=== PATIENT | female | born 1955 | race Two or more races ===

== ENCOUNTER → 2023-10-09 | Outpatient (CLI) | payer OTHER ==
[2023-10-09 11:48] LABS: Basophils # (auto) 0.1 10 ^3/uL (0-0.2); Basophils % (auto) 1.1 % (0.0-2.0); Eosinophils # (auto) 0.1 10 ^3/uL (0-0.8); Eosinophils % (auto) 1.2 % (0.0-7.0); Hematocrit 42.6 % (36.0-46.0); Hemoglobin 14.2 g/dL (12.2-16.2); Lymphocytes # (auto) 2.1 10 ^3/uL (0.4-5.4); Lymphocytes % (auto) 35.5 % (10.0-50.0); Mean Corpuscular Hemoglobin 29.7 pg (28.0-32.0); Mean Corpuscular Hgb Conc. 33.2 g/dL (32.0-36.0); Mean Corpuscular Volume 89.3 fL (80.0-100.0); Monocytes # (auto) 0.3 10 ^3/uL (0-1.3); Monocytes % (auto) 4.4 % (0.0-12.0); Neutrophils # (auto) 3.5 10 ^3/uL (1.6-8.6); Neutrophils % (auto) 57.8 % (37.0-80.0); Red Blood Cells 4.77 10^6/uL (4.0-5.20); Red Cell Distribution Width 12.9 % (11.8-14.3)
[2023-10-09 12:07] LABS: Creatinine, Urine 103.87 mg/dL (30.0-125.0)
[2023-10-09 12:14] LABS: Alanine Aminotransferase 21 U/L (7-40); Albumin 4.3 g/dL (3.2-4.8); Alkaline Phosphatase 93 U/L (46-116); Anion Gap 7 (5-15); Aspartate Aminotransferase 16 U/L (13-40); BUN/Creatinine Ratio 16.1 (10.0-20.0); Blood Urea Nitrogen 10 mg/dL (9-23); Calcium 9.2 mg/dL (8.5-10.1); Carbon Dioxide 27 mmol/L (20-30); Chloride 106 mmol/L (98-107); Cholesterol 213 mg/dL (< 200); Glucose 215 mg/dL (74-106); HDL Cholesterol 53 mg/dL (40-59); LDL Cholesterol 157 mg/dL (< 100); Potassium 4.2 mmol/L (3.5-5.1); Sodium 140 mmol/L (136-145); Triglycerides 104 mg/dL (< 150)
[2023-10-09 12:15] LABS: Bilirubin, Total 0.6 mg/dL (0.2-1.0); Total Protein 6.7 g/dL (5.7-8.2); Urine Bacteria FEW /hpf (None Seen); Urine Blood 1+ /uL (Negative); Urine Clarity Clear (Clear); Urine Color Yellow (Yellow); Urine Mucus FEW (None Seen); Urine Protein, UAD Negative (Negative); Urine Urobilinogen Normal (Negative); Urine WBC 2 /hpf (0 - 5)
== END | disposition home or self-care (01) ==
LOC: LAB 11:14
DX: Z12.11 Encounter for screening for malignant neoplasm of colon (principal); I10 Essential (primary) hypertension; E11.9 Type 2 diabetes mellitus without complications
CPT/HCPCS: 36415; 80053; 80061; 81001; 82043; 82570; 83036; 84443; 85025

== ENCOUNTER 2023-12-24 23:47 | Emergency (ER) | payer MEDICAID, OTHER ==
[~2023-12-24] VITALS: Ht 160 cm; Wt 75.0 kg
[2023-12-25 01:02] LABS: Urine Bacteria FEW /hpf (None Seen); Urine Blood 1+ /uL (Negative); Urine Clarity Clear (Clear); Urine Color Colorless (Yellow); Urine Protein, UAD Negative (Negative); Urine Specific Gravity 1.012 (1.001-1.035); Urine Urobilinogen Normal (Negative); Urine WBC <1 /hpf (0 - 5); Urine pH 5.5 (5.0-9.0)
[2023-12-25 03:00] VITALS: PULSE 72; RESP 12; O2SAT 94
[2023-12-25] MEDS: KETOROLAC TROMETH 60MG/2ML VIAL IM ONE (03:29)
[2023-12-25 03:30] VITALS: BP 164/69; PULSE 68; RESP 13; TEMP 98.4; O2SAT 92
[2023-12-25] MEDS: HYDROcodone-ACET 5/325MG TAB PO ONE (03:30)
== END 2023-12-25 03:55 | disposition home or self-care (01) ==
LOC: ER 23:47
DX: N93.8 Other specified abnormal uterine and vaginal bleeding (principal); R10.9 Unspecified abdominal pain
CPT/HCPCS: 81001; 96372; 99283; J1885

== ENCOUNTER → 2024-01-05 | Outpatient (CLI) | payer MEDICAID | END | disposition home or self-care (01) | LOC: LAB 11:00 | PROVIDERS: ATTEND Obstetrics & Gynecology | DX: N93.9 Abnormal uterine and vaginal bleeding, unspecified (principal) ==

== ENCOUNTER → 2024-05-09 | Outpatient (CLI) | payer MEDICAID ==
[2024-05-09 09:54] LABS: Basophils # (auto) 0.1 10 ^3/uL (0-0.2); Basophils % (auto) 0.8 % (0.0-2.0); Eosinophils # (auto) 0.1 10 ^3/uL (0-0.8); Eosinophils % (auto) 1.4 % (0.0-7.0); Hematocrit 38.3 % (36.0-46.0); Hemoglobin 13.1 g/dL (12.2-16.2); Lymphocytes # (auto) 2.3 10 ^3/uL (0.4-5.4); Lymphocytes % (auto) 31.9 % (10.0-50.0); Mean Corpuscular Hemoglobin 30.4 pg (28.0-32.0); Mean Corpuscular Hgb Conc. 34.3 g/dL (32.0-36.0); Mean Corpuscular Volume 88.7 fL (80.0-100.0); Monocytes # (auto) 0.4 10 ^3/uL (0-1.3); Monocytes % (auto) 5.6 % (0.0-12.0); Neutrophils # (auto) 4.3 10 ^3/uL (1.6-8.6); Neutrophils % (auto) 60.3 % (37.0-80.0); Platelet Count (auto) 277 10^3/uL (140-450); Red Blood Cells 4.32 10^6/uL (4.0-5.20); Red Cell Distribution Width 13.3 % (11.8-14.3); White Blood Cell 7.1 10^3/uL (4.4-10.8)
[2024-05-09 10:22] LABS: Alanine Aminotransferase 15 U/L (7-40); Albumin 4.3 g/dL (3.2-4.8); Alkaline Phosphatase 84 U/L (46-116); Anion Gap 7 (5-15); Aspartate Aminotransferase 11 U/L (13-40); BUN/Creatinine Ratio 23.2 (10.0-20.0); Blood Urea Nitrogen 16 mg/dL (9-23); Calcium 9.3 mg/dL (8.7-10.4); Carbon Dioxide 27 mmol/L (20-31); Chloride 108 mmol/L (98-107); Cholesterol 233 mg/dL (< 200); Glucose 142 mg/dL (74-106); HDL Cholesterol 46 mg/dL (40-59); LDL Cholesterol 176 mg/dL (< 100); Potassium 4.3 mmol/L (3.5-5.1); Sodium 142 mmol/L (136-145); Triglycerides 102 mg/dL (< 150)
[2024-05-09 10:23] LABS: Bilirubin, Total 0.5 mg/dL (0.2-1.0); Total Protein 7.1 g/dL (5.7-8.2)
[2024-05-09 10:40] LABS: Urine Bacteria FEW /hpf (None Seen); Urine Blood 1+ /uL (Negative); Urine Clarity Clear (Clear); Urine Color Light-Yellow (Yellow); Urine Protein, UAD Negative (Negative); Urine Specific Gravity 1.018 (1.001-1.035); Urine Urobilinogen Normal (Negative); Urine WBC 1 /hpf (0 - 5); Urine pH 5.5 (5.0-9.0)
== END | disposition home or self-care (01) ==
LOC: LAB 09:31
PROVIDERS: ATTEND Student in an Organized Health Care Education/Training Program
DX: I10 Essential (primary) hypertension (principal); E11.9 Type 2 diabetes mellitus without complications
CPT/HCPCS: 36415; 80053; 80061; 81001; 82306; 83036; 84443; 85025

== ENCOUNTER 2024-10-02 09:28 | Emergency (ER) | payer MEDICAID, MEDICARE ==
[~2024-10-02] VITALS: Ht 160 cm; Wt 70.2 kg
--- NOTE | 2024-10-02 10:24 | ED.PDOC ---
History of Present Illness HPI Comments 69 year old female presents to the ED with chief complaint of wound check. Patient reports that she had a surgery performed on 09/12/24 at [place] to remove an abdominal mass, however, she started to notice redness and discharge to her surgical site at the umbilicus yesterday. Patient relays that she also h as associated abdominal discomfort. Patient denies any N/V/D, fever, chills, or itchiness. Time Seen by MD: 10:20 Reviewed Notes: Nurses Notes, Medications, Allergies Allergies: Coded Allergies: NO KNOWN ALLERGIES (Unverified , 10/02/24) Home Meds Active Scripts Cephalexin (KEFLEX CAPSULE) 250 Mg Cp, 250 MG PO QID for 5 Days, #20 BOTTLE Prov:MAKEDA CHESTER MD 10/02/24 Information Source: Patient Mode of Arrival: Ambulatory Severity: Moderate Timing: Days Duration: Since onset Prehospital treatment: None Past Medical History PAST MEDICAL HISTORY: DM, HTN Surgical History: Hysterectomy, Tubal Ligation Surgical History (Other): Oophorectomy, Abdominal mass surgery 09/12 ENERGY SYSTEMS ENGINEER History: Denies all ENERGY SYSTEMS ENGINEER Hx Family History Family History: Reviewed,noncontributory to illness Social History Smoker: Non-Smoker Alcohol: Denies ETOH Use Drugs: Denies Drug Use Lives In: Home Constitutional: denies: chills, diaphoresis, fatigue, fever, malaise, sweats, weakness, others EENTM: denies: blurred vision, double vision, ear bleeding, ear discharge, ear drainage, ear pain, ear ringing, eye pain, eye redness, hearing loss, mouth pain, mouth swelling, nasal discharge, nose bleeding, nose congestion, nose pain, photophobia, tearing, throat pain, throat swelling, voice changes, others Respiratory: denies: cough, hemoptysis, orthopnea, SOB at rest, shortness of breath, SOB with excertion, stridor, wheezing, others Cardiovascular: denies: chest pain, dizzy spells, diaphoresis, Dyspnea on exertion, edema, irregular heart beat, left arm pain, lightheadedness, palpitations, PND, syncope, others Gastrointestinal: denies: abdomen distended, abdominal pain, blood streaked bowels, constipated, diarrhea, dysphagia, difficulty swallowing, hematemesis, melena, nausea, poor appetite, poor fluid intake, rectal bleeding, rectal pain, vomiting, others Genitourinary: denies: abnormal vagina bleeding, burning, dyspareunia, dysuria, flank pain, frequency, hematuria, incontinence, pain, , vagina discharge, urgency, others Neurological: denies: dizziness, fainting, headache, left sided numbness, left sided weakness, numbness, paresthesia, pre-existing deficit, right sided numbness, right sided weakness, seizure, speech problems, tingling, tremors, weakness, others Musculoskeletal: denies: back pain, gout, joint pain, joint swelling, muscle pain, muscle stiffness, neck pain, others Integumetry: reports: wounds (redness and discharge noted to umbilicus); denies: bruises, change in color, change in hair/nails, dryness, laceration, lesions, lumps, rash, others Allergic/Immunocompromised: denies: Difficulty Healing, Frequent Infections, Hives, Itching, others Hematologic/Lymphatic: denies: anemia, blood clots, easy bleeding, easy bruising, swollen glands, others Endocrine: denies: excessive hunger, excessive sweating, excessive thirst, excessive urination, flushing, intolerance to cold, intolerance to heat, unexplained weight gain, unexplained weight loss, others Psychiatric: denies: anxiety, bipolar disorder, depression, hopeless, panic disorder, schizophrenia, sleepless, suicidal, others All Other Systems: Reviewed and Negative Physical Exam General Appearance: Moderate Distress, Normal HEENT: Normal ENT Inspection, PERRL/EOMI Neck: Full Range of Motion, Non-Tender, Normal, Normal Inspection Respiratory: Chest Non-Tender, Lungs Clear, No Accessory Muscle Use, No Respiratory Distress, Normal Breath Sounds Cardiovascular: No Edema, No JVD, No Murmur, No Gallop, Normal Peripheral Pulses, Regular Rate/Rhythm Breast Exam: Deferred Gastrointestinal: No Organomegaly, Non Tender, No Pulsatile Mass, Normal Bowel Sounds, Soft Genitalia: Deferred Pelvic: Deferred Rectal: Deferred Extremities: No calf tenderness, Normal capillary refill, Normal inspection, Normal range of motion, Non-tender, No pedal edema Musculoskeletal : Apperance: Normal Neurologic: Alert, office sweeper II-XII nml as Tested, No Motor Deficits, Normal Affect, Normal Mood, No Sensory Deficits Cerebellar Function: Normal Reflexes: Normal Skin: Dry, Normal Color, Warm, Wounds (Surgical small area above the surgical line mild redness no sepsis) Peripheral Pulses: 3+ Radial (R), 3+ Radial (L) Lymphatic: No Adenopathy Was a procedure done? Was a procedure done?: No Differential Dx Considerations may include: Cellulitis Electrolyte imbalance X-Ray, Labs, Meds, VS Vital Signs Date Time Temp Pulse Resp B/P (MAP) Pulse Ox O2 Delivery O2 Flow Rate FiO2 10/02/24 09:35 97.9 78 18 129/61 (83) 97 Patient alert. Had a surgery below the umbilicus more than a month ago. Vitals stable. Answering questions. No sign of any sepsis. Heart rate within normal limits. Saturation pristine on room air. Mild redness above the surgical line. Possible early cellulitis. No leg swelling. No shortness a breath. Was given prescription of Keflex antibiotic. Explained to the patient. Was told to follow up with her primary care physician. Was told to come back if there is any problem. Time of 1ST Reevaluation: 11:20 Reevaluation 1ST: Improved Patient Education/Counseling: Diagnosis, Treatment Family Education/Counseling: No Family Present Departure 1 Departure Time of Disposition: 12:20 Impression: Primary Impression: Cellulitis Qualified Codes: L03.90 - Cellulitis, unspecified Disposition: HOME / SELF CARE / HOMELESS Condition: Good e-Prescriptions Cephalexin (KEFLEX CAPSULE) 250 Mg Cp 250 MG PO QID for 5 Days, #20 BOTTLE Prov: MAKEDA CHESTER MD 10/02/24 Discharged With: Self Critical Care Note Critical Care Time?: No Stability Stability form required: No Heart Score Heart Score: Heart Score Response (Comments) Value History N/A 0 EKG N/A 0 Age N/A 0 Risk Factors N/A 0 Troponin N/A 0 Total 0 I personally scribed for MAKEDA CHESTER MD ([email or web address]) on 10/02/24 at 10:24. Electronically submitted by James Thurston ([email or web address]). I personally scribed for MAKEDA CHESTER MD ([email or web address]) on 10/02/24 at 10:24. Electronically submitted by James Thurston ([email or web address]). MAKEDA CHESTER MD Oct 02, 2024 10:24
[2024-10-02] MEDS ORDERED: CEPH250C PO (12:20)
[2024-10-02 13:18] VITALS: BP 129/59; TEMP 98.9
[2024-10-02 13:23] VITALS: PULSE 85; RESP 16; O2SAT 98
== END 2024-10-02 13:26 | disposition home or self-care (01) ==
LOC: ER 09:28
DX: L03.311 Cellulitis of abdominal wall (principal); I10 Essential (primary) hypertension; E11.9 Type 2 diabetes mellitus without complications; Z90.710 Acquired absence of both cervix and uterus; Z90.721 Acquired absence of ovaries, unilateral

== ENCOUNTER 2025-05-01 11:28 | Inpatient (IN) | payer MEDICARE, MEDICAID ==
[~2025-05-01] VITALS: Ht 160 cm; Wt 70.8 kg
[~2025-05-01 11:28] MED LIST: CEPH250C PO
--- NOTE | 2025-05-01 11:47 | ED.PDOC ---
HPI (NEURO) HPI Comments 70-year-old female who presents to the ED for c/c of generalized weakness Beta states she has been having left-sided weakness for the past 3 days getting progressively worse Patient states he has been having associated headache dizziness and states she had a near syncopal episode earlier today and came to the ED today for further evaluation Patient presented to the ED noted able to ambulate on her own without any assistance Patient in the ED is alert and oriented x4 able to answer all questions but has noted lower upper and lower extremity weakness to the left patient had ED has a stable vitals including blood pressure 136/71 heart rate 91 respiratory rate 16 temperature 97.6F and O2 saturation of 96% on room air Past Medical history: diabetes, hypertension Past Surgical history: tubal ligation, hysterectomy Medications: denies ALLERGIES: denies Social history: denies ETOh, denies tobacco use, denies drug use MOYER: HPI: Poor Historian. REVIEW OF SYSTEMS: CONSTITUTIONAL: Denies acute: fever, diaphoresis, chills, generalized weakness. HEAD: Denies acute: headache, photophobia Eyes: Denies acute: Double vision, vision loss, eye pain, eye discharge. EARS: Denies acute: tinnitus, hearing loss, ear discharge, ear pain, THROAT: Denies acute: sore throat, swelling, difficulty swallowing , pain with swallowing, change in voice. NECK: Denies acute: neck pain, neck swelling, stiff neck. HEART: Denies acute : chest pain, palpitations, LUNGS: Denies acute: SOB, wheezing, cough, hemoptysis ABDOMEN: Denies acute: abdominal pain, Nausea, Vomiting, diarrhea, melena , hematemesis, hematochezia SKIN: Denies acute: rash, redness, lesions, itchiness. EXTREMITIES: Denies acute: calf pain, numbness, tingling, weakness, denies pain in extremity. Denies acute: Low back pain. Neuro: Denies acute: seizure like activity, confusion, dizziness, change in mental status, loss of bowel or bladder function, cauda equina like symptoms. : Denies acute: dysuria, hematuria, flank pain, increase in urinary frequency. PSYCH: Denies acute: hallucination, suicidal ideation, homicidal ideation. FEMALE: Denies acute: abnormal vaginal bleeding, foul odor, unusual discharge. PHYSICAL EXAM: General: -----mild---acute distress, awake and alert. Head: normocephalic, atraumatic. Neck: supple, trachea is midline, no swelling. Throat: Normal phonation. Eyes:, no erythema, no purulent discharge, no proptosis, no icterus. Heart: regular rate, regular rhythm, no significant murmur appreciated. Lungs: no apparent respiratory distress, Able to speak in full sentences. No wheezing, no rhonchi, no crackles. No stridors Clear to auscultation bilaterally. Abdomen: non tender to palpation, non distended, soft, no guarding, no rebound, + bowel sounds. Neuro: Awake, Alert, oriented to name, self, situation, follows commands GCS=15. Speech is normal. Skin: no petechia, no purpura, no cyanosis, non-pale, not jaundice. Lower extremities: --no - Pitting edema no deformity, no focal swelling, no calf TTP. Makes eye contact. moves all four extremities. Face: no apparent facial droop. Stroke: finger to nose cerebellar testing is sluggish on left. noted left side pronator drift. 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 No nuchal rigidity, Kernig's sign, Brudzinski's sign, no meningeal signs. ED COURSE: DISCLAIMER: This medical document was created using an electronic medical record system with voice recognition software and computerized dictation system. Although this document has been carefully reviewed, there might still be some phonetic and typographical errors. Occasional wrong-word or "sound-alike" substitutions may have occurred due to the inherent limitations of voice recognition software. These areas are purely typographical due to imperfections of the software prog karla and do not reflect any compromise in the patient's medical care. Please read the chart carefully and recognize, using context, where these substitutions have occurred. Chief Complaint: Left Sided Weakness Time Seen by MD: 11:44 Primary Care Provider: WHITTEN Reviewed Notes: Medications, Allergies Information Source: Patient Mode of Arrival: Ambulatory Past Medical History PAST MEDICAL HISTORY: DM, HTN Surgical History: Hysterectomy, Tubal Ligation COMPO CASTER History: Denies all COMPO CASTER Hx Family History Family History: Reviewed,noncontributory to illness Social History Smoker: Non-Smoker Alcohol: Denies ETOH Use Drugs: Denies Drug Use Lives In: Home Was a procedure done? Was a procedure done?: No Differential Diagnosis (SZ) Seizure: N/A CVA: Zuniga's Palsy, CVA, Delirium Tremens, DKA, Drug Overdose, Electrolyte Imbalance, Encephalopathy, Hypoglycemia, Hypoxemia, Mass Lesion, Respiratory Failure, SAH, TIA X-Ray, Labs, Meds, VS Vital Signs Date Time Temp Pulse Resp B/P (MAP) Pulse Ox O2 Delivery O2 Flow Rate FiO2 05/01/25 19:37 98.5 78 16 181/79 (113) 97 98.5 05/01/25 16:22 98.4 76 23 160/78 (105) 94 98.4 05/01/25 11:31 97.6 91 16 136/71 96 97.6 Lab Test 05/01/25 15:44 05/01/25 13:37 05/01/25 12:21 Range/Units Phosphorus Level 3.9 2.4-5.1 mg/dL Troponin I High Sensitivity 3 L 3 L < 3 L </=34 ng/L Triglycerides Level 181 H < 150 mg/dL Cholesterol Level 257 H < 200 mg/dL LDL Cholesterol 207 H < 100 mg/dL HDL Cholesterol 46 40-59 mg/dL Thyroid Stimulating Hormone (TSH) 1.44 0.55-4.78 uIU/mL White Blood Count 7.3 4.4-10.8 10^3/uL Red Blood Count 4.52 4.0-5.20 10^6/uL Hemoglobin 13.2 12.2-16.2 g/dL Hematocrit 39.1 36.0-46.0 % Mean Corpuscular Volume 86.5 80.0-100.0 fL Mean Corpuscular Hemoglobin 29.2 28.0-32.0 pg Mean Corpuscular Hemoglobin Concent 33.8 32.0-36.0 g/dL Red Cell Distribution Width 12.8 11.8-14.3 % Platelet Count 263 140-450 10^3/uL Mean Platelet Volume 8.8 6.9-10.8 fL Neutrophils (%) (Auto) 69.1 37.0-80.0 % Lymphocytes (%) (Auto) 26.4 10.0-50.0 % Monocytes (%) (Auto) 3.6 0.0-12.0 % Eosinophils (%) (Auto) 0.3 0.0-7.0 % Basophils (%) (Auto) 0.6 0.0-2.0 % Neutrophils # (Auto) 5.0 1.6-8.6 10 ^3/uL Lymphocytes # (Auto) 1.9 0.4-5.4 10 ^3/uL Monocytes # (Auto) 0.3 0-1.3 10 ^3/uL Eosinophils # (Auto) 0 0-0.8 10 ^3/uL Basophils # (Auto) 0 0-0.2 10 ^3/uL Nucleated Red Blood Cells 0.0 % Prothrombin Time 10.5 9.3-11.8 sec Prothrombin Time INR 0.99 0.9-1.15 Activated Partial Thromboplast Time 25.5 24.5-34.5 SEC Sodium Level 134 L 136-145 mmol/L Potassium Level 3.7 3.5-5.1 mmol/L Chloride Level 99 98-107 mmol/L Carbon Dioxide Level 25 20-31 mmol/L Anion Gap 10 5-15 Blood Urea Nitrogen 22 9-23 mg/dL Creatinine 0.94 0.550-1.02 mg/dL Glomerular Filtration Rate Calc 65 >90 mL/min BUN/Creatinine Ratio 23.4 H 10.0-20.0 Serum Glucose 324 H 74-106 mg/dL Hemoglobin A1c > 14.0 H <5.7 % A1C Calcium Level 9.3 8.7-10.4 mg/dL Magnesium Level 1.7 1.6-2.6 mg/dL Total Bilirubin 0.5 0.2-1.0 mg/dL Aspartate Amino Transferase (AST) 14 13-40 U/L Alanine Aminotransferase (ALT) 18 7-40 U/L Alkaline Phosphatase 106 46-116 U/L B-Type Natriuretic Peptide 74.28 0-100 pg/mL Total Protein 7.1 5.7-8.2 g/dL Albumin 4.1 3.2-4.8 g/dL Vitamin B12 Level 770 211-911 pg/mL [facility] [address] [place] [id number] Ph: [phone] DIAGNOSTIC IMAGING Diagnostic Imaging Report : [id number] Signed PATIENT: YUDELKA MOYER ACCT: [id number] UNIT: [id number] : 1955 LOC: ER ROOM / BED: / AGE / SEX: 70 / F ADM STATUS: REG ER SERVICE [facility] ORDERING PHYSICIAN: GARRETT NOE DO PROCEDURE(s): CXR1 - CHEST XRAY 1 VIEW REASON: stroke ORDER NUMBER(s): [id number], ACCESSION NUMBER(s): [id number] XY CHEST XRAY 1 VIEW, HISTORY: stroke COMPARISON: None None TECHNICAL DATA: 1 view of the chest was obtained. FINDINGS: Lines and tubes: None Cardiomediastinal silhouette: normal Pulmonary vasculature: normal Lung expansion: normal Lung airspace: normal Lung interstitium: normal Pleura: normal Pneumothorax: no Bones: Unremarkable Other: no IMPRESSION: No acute intrathoracic abnormality. ATED BY: REJI BOSS MD DICTATED DATE/TIME: 05/01/251218 SIGNED BY: REJI BOSS MD SIGNED DATE/TIME: 05/01/251218 CC: [place] [id number] Ph: [phone] DIAGNOSTIC IMAGING Diagnostic Imaging Report : [id number] Signed PATIENT: YUDELKA MOYER ACCT: [id number] UNIT: [id number] : 1955 LOC: ER ROOM / BED: / AGE / SEX: 70 / F ADM STATUS: REG ER SERVICE [facility] ORDERING PHYSICIAN: GARRETT NOE DO PROCEDURE(s): CTH - STROKE CTH REASON: stroke ORDER NUMBER(s): [id number], ACCESSION NUMBER(s): [id number] CT STROKE CTH Indication: stroke EXAM DATE: 05/01/2025 11:48 AM COMPARISON: None TECHNIQUE: CT of the head without intravenous contrast. RADIATION DOSE: CTDIvol: 51 mGy, DLP: 845 mGy*cm FINDINGS: There is no intracranial hemorrhage. Right frontal subcortical hypodense region measuring 13 mm. Right parietal subcu hypodense region measuring 18 mm. Right whitten radiata hypodense region measuring 8 mm. Mild periventricular and subcortical white matter chronic microvascular ischemic changes. The ventricles are midline and normal in size. Cisterns patent. Mastoids well pneumatized. Paranasal sinuses well pneumatized. The paranasal sinuses and mastoids are well-pneumatized. Imaged portion of the orbits are unremarkable. IMPRESSION: No intracranial hemorrhage . Right frontal and parietal hypodense regions as described which could represent subacute infarcts. However, other lesions including metastases must be ruled out especially for the right frontal and parietal subcortical regions. Recommend MRI brain with and without contrast. Critical Result: Stroke Alert Findings discussed with Dr Noe, at 05/01/2025 12:23 PM, and acknowledged recei pt and understanding of the findings. .. ATED BY: DOT IVORY MD DICTATED DATE/TIME: 05/01/251223 SIGNED BY: DOT IVORY MD SIGNED DATE/TIME: 05/01/25 1224 CC: [place] [id number] Ph: [phone] DIAGNOSTIC IMAGING Diagnostic Imaging Report : [id number] Signed PATIENT: YUDELKA MOYER ACCT: [id number] UNIT: [id number] : 1955 LOC: ER ROOM / BED: / AGE / SEX: 70 / F ADM STATUS: REG ER SERVICE [id number] ORDERING PHYSICIAN: GARRETT NOE DO PROCEDURE(s): [place] - ANGIO HEAD/Neck REASON: stroke ORDER NUMBER(s): [id number], ACCESSION NUMBER(s): [id number] EXAM: CT ANGIO HEAD/NECK DATE OF SERVICE: 05/01/2025 11:50 AM ORDERING PHYSICIAN: GARRETT NOE REASON FOR EXAM: stroke TECHNIQUE: CTA of the brain and neck was performed after the administration of contrast . Axial images of the head and neck are obtained. Coronal and sagittal images were then reformatted for review. MIP reformats were obtained and revie mon. COMPARISON: CT head from today FINDINGS: FINDINGS: Aortic arch atherosclerotic disease. The right common carotid artery demonstrates no high-grade stenosis. Right internal carotid artery demonstrates no high-grade stenosis. 4 mm saccular aneurysm arising off of the supraclinoid right ICA Right middle cerebral artery demonstrates short segment severe narrowing of the M1 segment The right anterior cerebral artery demonstrates no high-grade stenosis. The left common carotid artery demonstrates no high-grade stenosis. Left internal carotid artery demonstrates no high-grade stenosis. The left middle cerebral artery demonstrates no high-grade stenosis. The left anterior cerebral artery demonstrates no high-grade stenosis. The right vertebral artery demonstrates no high-grade stenosis. The left vertebral artery is small in caliber and demonstrates narrowing/atresia of the V4 segment. Basilar artery demonstrates no high-grade stenosis. The bilateral posterior cerebral arteries demonstrate no high-grade stenosis. Severe cervical degenerative disc disease. IMPRESSION: Short segment severe narrowing of the right middle cerebral artery M1 segment, concerning for acute occlusion/thromboembolic disease. Recommend neurology/neuro IR consultation Small caliber left vertebral artery with narrowing/ atresia of the V4 segment. 4 mm saccular aneurysm arising off the supraclinoid right ICA. Critical Result: Stroke Alert Findings discussed with Dr Noe, at 05/01/2025 12:39 PM, and acknowledged r eceipt and understanding of the findings. .. ATED BY: DOT IVORY MD DICTATED DATE/TIME: 05/01/25 124 SIGNED BY: DOT IVORY MD SIGNED DATE/TIME: 05/01/25 1241 CC: Time of 1ST Reevaluation: 14:02 (Discussed the case with the radiologist earlier. I discussed the case with our neurologist on-call who recommends admitting the patient to our facility and he will follow in consult. No addit ional recommendations at this time.) Reevaluation 1ST: Unchanged Patient Education/Counseling: Diagnosis, Treatment Family Education/Counseling: No Family Present Comments MDM: patient presented with the above HPI.--stroke-like symptoms----workup was initiated. patient was found with the above mentioned diagnosis. the following medications were ordered: please refer to order lists of meds and tests obtained by myself Dr. Noe. Patient ED course and VS have been stabilized. Patient has been reassessed in the ED and remained in a stable condition. Pertinent incidental findings were discussed with the patient and/or family. Patient/family voices understanding and is agreeable with plan. Patient has been observed in the ED adequate length of time to insure improvement/stability. Escalation of care considered: Consideration of escalation to observation or admission Neurology was consulted. Patient was ADMITTED to the medicine team for further evaluation and treatment of their presentation. All the reports of any imaging studies that were ordered by myself were reviewed by myself. Departure 1 Departure Time of Disposition: 11:50 Impression: Primary Impression: Stroke Disposition: ADMITTED INPATIENT Admit to: Tele Condition: Guarded e-Prescriptions Clopidogrel Bisulfate (CLOPIDOGREL) 75 Mg Tab 75 MG PO DAILY for 30 Days, #30 TAB 1 Refill Prov: DEVEN SOLORZANO RESIDENT 05/03/25 Atorvastatin Calcium (ATORVASTATIN CALCIUM) 20 Mg Tab 80 MG PO HS for 30 Days, #120 TAB 1 Refill Prov: DEVEN SOLORZANO RESIDENT 05/03/25 Aspirin (Aspirin Low Dose) 81 Mg Tab 81 MG PO DAILY for 30 Days, #30 TAB 1 Refill Prov: DEVEN SOLORZANO RESIDENT 05/03/25 Amlodipine Besylate (NORVASC TABLET) 5 Mg Tb 5 MG PO DAILY for 30 Days, #30 TAB 1 Refill Prov: DEVEN SOLORZANO [facility] 05/03/25 Discharged With: Self Critical Care Note Critical Care Time?: Yes (1 hr-critical care time only) Stability Stability form required: No Heart Score Heart Score: Heart Score Response (Comments) Value History Slightly Suspicious 0 EKG Normal 0 Age >65 2 Risk Factors 1 or 2 risk factors 1 Troponin Normal limit 0 Total 3 I personally scribed for GARRETT NOE DO ([email or web address]) on 05/01/25 at 11:47. Electronically submitted by Maria Isabel Love ([email or web address]). I personally scribed for GARRETT NOE DO ([email or web address]) on 05/01/25 at 12:36. Electronically submitted by Maria Isabel Love ([email or web address]). I personally scribed for GARRETT NOE DO ([email or web address]) on 05/01/25 at 13:06. Electronically submitted by Maria Isabel Love ([email or web address]). GARRETT NOE DO May 01, 2025 11:47
[2025-05-01] MEDS: IOHEXOL 350 MG/ML 100ML IJ ONE (12:10)
--- NOTE | 2025-05-01 12:22 | DVH ---
XY CHEST XRAY 1 VIEW, HISTORY: stroke COMPARISON: None None TECHNICAL DATA: 1 view of the chest was obtained. FINDINGS: Lines and tubes: None Cardiomediastinal silhouette: normal Pulmonary vasculature: normal Lung expansion: normal Lung airspace: normal Lung interstitium: normal Pleura: normal Pneumothorax: no Bones: Unremarkable Other: no IMPRESSION: No acute intrathoracic abnormality.
--- NOTE | 2025-05-01 12:23 | DVH ---
CT STROKE CTH Indication: stroke EXAM DATE: 05/01/2025 11:48 AM COMPARISON: None TECHNIQUE: CT of the head without intravenous contrast. RADIATION DOSE: CTDIvol: 51 mGy, DLP: 845 mGy*cm FINDINGS: There is no intracranial hemorrhage. Right frontal subcortical hypodense region measuring 13 mm. Righ t parietal subcu hypodense region measuring 18 mm. Right gilbert radiata hypodense region measuring 8 mm. Mild periventricular and subcortical white matter chronic microvascular ischemic changes. The ventric les are midline and normal in size. Cisterns patent. Mastoids well pneumatized. Paranasal sinuses wel l pneumatized. The paranasal sinuses and mastoids are well-pneumatized. Imaged portion of the orbits are unremarkabl e. IMPRESSION: No intracranial hemorrhage . Right frontal and parietal hypodense regions as described which could represent subacute infarcts. Ho wever, other lesions including metastases must be ruled out especially for the right frontal and ever etal subcortical regions. Recommend MRI brain with and without contrast. Critical Result: Stroke Alert Findings discussed with Dr Hdz, at 05/01/2025 12:23 PM, and acknowledged receipt and understanding of the findings. ..
--- NOTE | 2025-05-01 12:39 | DVH ---
EXAM: CT ANGIO HEAD/NECK DATE OF SERVICE: 05/01/2025 11:50 AM ORDERING PHYSICIAN: GARRETT HDZ REASON FOR EXAM: stroke TECHNIQUE: CTA of the brain and neck was performed after the administration of contrast . Axial imag es of the head and neck are obtained. Coronal and sagittal images were then reformatted for review. M IP reformats were obtained and reviewed. COMPARISON: CT head from today FINDINGS: FINDINGS: Aortic arch atherosclerotic disease. The right common carotid artery demonstrates no high-grade stenosis. Right internal carotid artery demonstrates no high-grade stenosis. 4 mm saccular aneurysm arising off of the supraclinoid right ICA Right middle cerebral artery demonstrates short segment severe narrowing of the M1 segment The right anterior cerebral artery demonstrates no high-grade stenosis. The left common carotid artery demonstrates no high-grade stenosis. Left internal carotid artery demonstrates no high-grade stenosis. The left middle cerebral artery demonstrates no high-grade stenosis. The left anterior cerebral artery demonstrates no high-grade stenosis. The right vertebral artery demonstrates no high-grade stenosis. The left vertebral artery is small in caliber and demonstrates narrowing/atresia of the V4 segment. Basilar artery demonstrates no high-grade stenosis. The bilateral posterior cerebral arteries demonstrate no high-grade stenosis. Severe cervical degenerative disc disease. IMPRESSION: Short segment severe narrowing of the right middle cerebral artery M1 segment, concerning for acute o cclusion/thromboembolic disease. Recommend neurology/neuro IR consultation Small caliber left vertebral artery with narrowing/ atresia of the V4 segment. 4 mm saccular aneurysm arising off the supraclinoid right ICA. Critical Result: Stroke Alert Findings discussed with Dr Hdz, at 05/01/2025 12:39 PM, and acknowledged receipt and understanding of the findings. ..
[2025-05-01 12:48] LABS: Hematocrit 39.1 % (36.0-46.0); Hemoglobin 13.2 g/dL (12.2-16.2); Mean Corpuscular Hemoglobin 29.2 pg (28.0-32.0); Mean Corpuscular Volume 86.5 fL (80.0-100.0); Nucleated Red Blood Cells % 0.0 %
[2025-05-01 13:05] LABS: INR 0.99 (0.9-1.15); Partial Thromboplastin Time 25.5 SEC (24.5-34.5); Prothrombin Time 10.5 sec (9.3-11.8)
[2025-05-01 13:12] LABS: Alanine Aminotransferase 18 U/L (7-40); Albumin 4.1 g/dL (3.2-4.8); Alkaline Phosphatase 106 U/L (46-116); Anion Gap 10 (5-15); BUN/Creatinine Ratio 23.4 (10.0-20.0); Bilirubin, Total 0.5 mg/dL (0.2-1.0); Blood Urea Nitrogen 22 mg/dL (9-23); Calcium 9.3 mg/dL (8.7-10.4); Carbon Dioxide 25 mmol/L (20-31); Chloride 99 mmol/L (98-107); Magnesium 1.7 mg/dL (1.6-2.6); Potassium 3.7 mmol/L (3.5-5.1); Total Protein 7.1 g/dL (5.7-8.2)
[2025-05-01 13:13] LABS: Glucose 324 mg/dL (74-106); Sodium 134 mmol/L (136-145)
[2025-05-01] MEDS: ASPirin-EC 325mg tab PO ONE (14:26)
[2025-05-01 21:15] LABS: HDL Cholesterol 46.0 mg/dL (40-59)
[2025-05-01] MEDS ORDERED: DEXTROSE (50%) 50ML SYRG IV PRN (21:15)
[2025-05-01] MEDS ORDERED: ACETAMINOPHEN 325 MG TAB PO PRN (21:15)
--- NOTE | 2025-05-01 21:26 | DVHHPRES ---
History of Present Illness Resident Creating Document: HEATHER STILES History of Present Illness Ms. Sousa Is a 70-year-old female with prior medical history of type 2 diabetes mellitus, hypertension, and a stomach mass resected at [facility], who presented to the ED with chief complaint of left sided weakness. The patient states she had sudden onset of left-sided weakness 2-3 days ago associated with paresthesias of the left side of her face and tinnitus/sounds in her left ear. The patient states she has had difficulty holding objects in her left hand and walking properly, which has progressively worsened. She is accompanied by her friend, Carmel Schrader, who states that this morning at [facility] the patient seemed weak and began to slump over toward her left side, which prompted them to bring her to the ED. She denies headaches, nausea, vomiting, changes in vision, difficulty swallowing, loss of consciousness, slurring of words, loss of s ensation, and other symptoms. On evaluation in the ED, patient was hypertensive. 12 lead EKG shows normal sinus rhythm. Initial labs show CBC within normal range, hyponatremia, and hyperglycemia. Head CT shows right gilbert radiata hypodense region measuring 8 mm, right frontal subcortical hypodense region measuring 13 mm, right parietal subcu hypodense region measuring 18 mm, which could represent subacute infarcts. No intracranial hemorrhage. Head and neck CT shows short segment severe narrowing of the right middle cerebral artery M1 segment concerning for acute occlusion / thromboembolic disease, small caliber left vertebral artery with narrowing / atresia of the V4 segment, and 4 mm saccular aneurysm arising off the supraclinoid right ICA. Carotid duplex shows no hemodynamically significant stenosis noted in the right carotid system, mild less than 50% stenosis of the left internal carotid artery. She was admitted for further workup and management. Cardiovascular: HTN GI: Other (Stomach mass removed at [facility]) Endocrine: Diabetes Past Surgical History: , Other (Removal of stomach mass at [facility]) Smoke: No ALCOHOL: none Drugs: None Lives: with Family Domestic Violence: Neg Review of Systems Review of Systems Constitutional: Refers generalized weakness, Denies weight loss, fever and chills. HEENT: Denies changes in vision and hearing. Respiratory: Denies shortness of breath and cough Cardiovascular: Denies chest discomfort or palpitations GI: Denies abdominal distention, abdominal pain, diarrhea : Denies dysuria and urinary frequency. Musculoskeletal: Denies symptoms Skin: Denies rash and pruritus. Neurological: Refers weakness of left side of the body and tinnitus in left ear, denies dizziness, headache, changes in vision Allergies: Coded Allergies: NO KNOWN ALLERGIES (Unverified , 10/02/24) Exam Vital Signs Vital Signs Date Time Temp Pulse Resp B/P (MAP) Pulse Ox O2 Delivery O2 Flow Rate FiO2 05/01/25 19:37 98.5 78 16 181/79 (113) 97 98.5 Exam General: The patient alert and oriented in person place and time. Patient following commands HEENT: Normocephalic, atraumatic, normal reactive pupils, EOM intact, pink conjunctiva, pink moist mucous membrane, uvula is midline Respiratory/pulmonary: Bilateral chest expansion, no pain on palpation of chest wall, clear lungs bilaterally, vesicular murmurs present in almost all lung urrutia, no associated crackles or wheezes. Cardiovascular: Normal RRR, normal S1 and S2, no murmurs Abdomen: Abdomen nondistended, normal bowel sounds, soft, there is no pain to p alpation in any of the abdominal quadrants, no palpable masses. Extremities: No deformities, there is no peripheral edema present at the lower extremities, normal pulses Skin: No rashes or pruritus, there is no sacral edema present at this time. Neurological: Intact cranial nerves with no focal neurologic deficits, weakness of left arm and leg, left arm drift is present Labs/Xrays Labs Test 05/01/25 15:44 05/01/25 12:21 Range/Units Troponin I High Sensitivity 3 L </=34 ng/L White Blood Count 7.3 4.4-10.8 10^3/uL Red Blood Count 4.52 4.0-5.20 10^6/uL Hemoglobin 13.2 12.2-16.2 g/dL Hematocrit 39.1 36.0-46.0 % Mean Corpuscular Volume 86.5 80.0-100.0 fL Mean Corpuscular Hemoglobin 29.2 28.0-32.0 pg Mean Corpuscular Hemoglobin Concent 33.8 32.0-36.0 g/dL Red Cell Distribution Width 12.8 11.8-14.3 % Platelet Count 263 140-450 10^3/uL Mean Platelet Volume 8.8 6.9-10.8 fL Neutrophils (%) (Auto) 69.1 37.0-80.0 % Lymphocytes (%) (Auto) 26.4 10.0-50.0 % Monocytes (%) (Auto) 3.6 0.0-12.0 % Eosinophils (%) (Auto) 0.3 0.0-7.0 % Basophils (%) (Auto) 0.6 0.0-2.0 % Neutrophils # (Auto) 5.0 1.6-8.6 10 ^3/uL Lymphocytes # (Auto) 1.9 0.4-5.4 10 ^3/uL Monocytes # (Auto) 0.3 0-1.3 10 ^3/uL Eosinophils # (Auto) 0 0-0.8 10 ^3/uL Basophils # (Auto) 0 0-0.2 10 ^3/uL Nucleated Red Blood Cells 0.0 % Prothrombin Time 10.5 9.3-11.8 sec Prothrombin Time INR 0.99 0.9-1.15 Activated Partial Thromboplast Time 25.5 24.5-34.5 SEC Sodium Level 134 L 136-145 mmol/L Potassium Level 3.7 3.5-5.1 mmol/L Chloride Level 99 98-107 mmol/L Carbon Dioxide Level 25 20-31 mmol/L Anion Gap 10 5-15 Blood Urea Nitrogen 22 9-23 mg/dL Creatinine 0.94 0.550-1.02 mg/dL Glomerular Filtration Rate Calc 65 >90 mL/min BUN/Creatinine Ratio 23.4 H 10.0-20.0 Serum Glucose 324 H 74-106 mg/dL Calcium Level 9.3 8.7-10.4 mg/dL Magnesium Level 1.7 1.6-2.6 mg/dL Total Bilirubin 0.5 0.2-1.0 mg/dL Aspartate Amino Transferase (AST) 14 13-40 U/L Alanine Aminotransferase (ALT) 18 7-40 U/L Alkaline Phosphatase 106 46-116 U/L B-Type Natriuretic Peptide 74.28 0-100 pg/mL Total Protein 7.1 5.7-8.2 g/dL Albumin 4.1 3.2-4.8 g/dL SEPSIS Sepsis Screen Date sepsis recognized/suspect: May 01, 2025 Time Sepsis recognized/suspect: 1133 Recent Procedure: No On Antibiotic Therapy: No Respiratory Rate >20: No Heart Rate >90: No Temp<36 C (96.8 F) or >38.3 C: No SBP <90 or MAP <65 mmHG: No New Acute Mental Status Change: No Is the patient on CPAP, BIPAP,: No Physician Orders Drug Screen (05/01/25 20:37) Urinalysis (05/01/25 20:37) Lipid Panel (05/01/25 20:37) Hemoglobin A1c (05/01/25 20:37) Complete Blood Count (05/02/25 04:00) Basic Metabolic Panel (05/02/25 04:00) Phosphorus (05/01/25 20:37) Thyroid Stimulating Hormone (05/01/25 20:37) Vitamin B12 (05/01/25 20:37) Admit (05/01/25 21:09) Allergies (05/01/25 21:09) Code Status (05/01/25 21:09) Acetaminophen Tablet (Tylenol Tablet) (05/01/25 21:15) Cardiac Diet-2gna,Lofat,Lochol (05/02/25 Breakfast) Echo 2d Mode Cardiac Dop (05/01/25 21:09) Condition: Stable (05/01/25 21:09) Stat Ekg For Chest Pain (05/01/25 21:09) Notify Md Of Changes From Base (05/01/25 21:09) Wallcovering Texturer For 24 Hours (05/01/25 21:09) Emergency Dysrhythmia Protocol (05/01/25 21:09) Rhythm Strips Once Every Shift (05/01/25 21:09) Electrocardigram (05/01/25 21:09) Amlodipine Tablet (Norvasc Tablet) (05/01/25 21:15) Amlodipine Tablet (Norvasc Tablet) (05/02/25 10:00) Glucose Blood (Accu-Chek Comfort Curve T (05/01/25 22:00) Mild Sliding Scale (05/01/25 22:00) Dextrose 50% Syringe (05/01/25 21:15) Sequential Compression Device (05/01/25 21:09) Pt Request For Service (05/01/25 21:09) Atorvastatin (Lipitor) (05/01/25 22:00) Carotid Duplx W Color Dop (05/01/25 21:09) Vital Signs Date Time Temp Pulse Resp B/P (MAP) Pulse Ox O2 Delivery O2 Flow Rate FiO2 05/01/25 19:37 98.5 78 16 181/79 (113) 97 98.5 05/01/25 16:22 98.4 76 23 160/78 (105) 94 98.4 Laboratory Tests Test 05/01/25 12:21 White Blood Count 7.3 10^3/uL (4.4-10.8) Medications Medications Dose Ordered Sig/Mary Route Start Time Stop Time Status Last Admin Dose Admin Aspirin 325 mg ONCE ONCE PO 05/01/25 12:30 05/01/25 12:31 DC 05/01/25 14:26 325 MG Assessment/Plan Assessment/Plan Assessment and Plan: Acute left-sided weakness, paresthesias, and gait disturbance secondary to subacute ischemic stroke -Head Ct: Head CT shows right gilbert radiata hypodense region measuring 8 mm, right frontal subcortical hypodense region measuring 13 mm, right parietal subcu hypodense region measuring 18 mm, which could represent subacute infarcts. No intracranial hemorrhage. -Head and Neck CT: Short segment severe narrowing of the right middle cerebral artery M1 segment concerning for acute occlusion / thromboembolic disease, small caliber left vertebral artery with narrowing / atresia of the V4 segment, and 4 mm saccular aneurysm arising off the supraclinoid right ICA. -No thrombolysis or thrombectomy is indicated at this time given that patient has presented outside window -Neurology: Recommend monitoring, supportive treatment, telemetry, echocardiogram, MRI head, aspirin 81 mg daily, Lipitor 80 mg daily -Aspirin 325 mg p.o. once -Aspirin 81 mg p.o. daily -Atorvastatin 80 mg p.o. HS -Plavix 75 mg p.o. daily -MRI head has been ordered for further evaluation -Physical therapy has been consulted for evaluation -Cardiac diet Saccular aneurysm of right ICA - Head and neck CT: 4 mm saccular aneurysm arising off the supraclinoid right ICA - Per neurology, follow up outpatient Uncontrolled diabetes mellitus with hyperglycemia, HbA1c > 14 Simple hyperglycemia -Mild SSI -Accu-Cheks Hypertension -Continue Losartan 100 mg p.o. daily -Monitor blood pressure Mixed Hyperlipidemia - Atorvastatin 80 mg p.o. HS Mild hyponatremia (probable pseudohyponatremia due to hyperglycemia) - Monitor sodium levels diet: Cardiac GI prophylaxis: Not indicated DVT prophylaxis: Lovenox is being held due to risk of hemorrhagic transformation of stroke Case discussed with Dr. Johnson Goals of care discussed with the patient for over 24 minutes. FULL CODE. Plan discussed with: Patient, Other (Nurses) My Orders Orders - HEATHER STILES RESIDENT Procedure Category Date Status Time Drug Screen LAB 05/01/25 Logged 20:37 Urinalysis LAB 05/01/25 Logged 20:37 Lipid Panel LAB 05/01/25 In Process 20:37 Hemoglobin A1c LAB 05/01/25 In Process 20:37 Complete Blood Count LAB 05/02/25 Verified 04:00 Basic Metabolic Panel LAB 05/02/25 Verified 04:00 Phosphorus LAB 05/01/25 In Process 20:37 Thyroid Stimulating LAB 05/01/25 In Process Hormone 20:37 Vitamin B12 LAB 05/01/25 In Process 20:37 Admit ADMIT 05/01/25 Transmitted 21:09 Allergies DAFNE 05/01/25 Transmitted 21:09 Code Status CODE 05/01/25 Transmitted 21:09 Acetaminophen Tablet PHA 05/01/25 Transmitted (Tylenol Tablet) 21:15 Cardiac DIET 05/02/25 Transmitted Diet-2gna,Lofat,Lochol Breakfast Echo 2d Mode Cardiac US 05/01/25 Transmitted DOP 21:09 Condition: Stable [facility] 05/01/25 Transmitted 21:09 Stat Ekg For Chest [facility] 05/01/25 Transmitted Pain 21:09 Notify Of Changes [facility] 05/01/25 Transmitted From Base 21:09 Wallcovering Texturer For [facility] 05/01/25 Transmitted 24 Hours 21:09 Emergency Dysrhythmia [facility] 05/01/25 Transmitted Protocol 21:09 Rhythm Strips Once [facility] 05/01/25 Transmitted Every Shift 21:09 Electrocardigram EKG 05/01/25 Transmitted 21:[address] [facility] 05/01/25 Transmitted (Norvasc Tablet) 21:15 Amlodipine Tablet PHA 05/02/25 Transmitted (Norvasc Tablet) 10:00 Glucose Blood PHA 05/01/25 Transmitted (Accu-Chek Comfort 22:00 Mild Sliding Scale PHA 05/01/25 Transmitted 22:00 Dextrose 50% Syringe PHA 05/01/25 Transmitted 21:15 Sequential DAFNE 05/01/25 Transmitted Compression Device 21:09 Pt Request For Service PT 05/01/25 Transmitted 21:09 Atorvastatin (Lipitor) PHA 05/01/25 Transmitted 22:00 Carotid Duplx W Color US 05/01/25 Transmitted DOP 21:09 Date of Service: May 01, 2025 Billing Provider: OSMAN JOHNSON MD Common Visit Codes: [id number] INP/OBS CARE (HIGH) Secondary Visit Codes: [id number] CARE PLAN 30 MINUTES HEATHER STILES RESIDENT May 01, 2025 21:26 [facility] RESIDENT May 02, 2025 04:16
[2025-05-01 21:28] LABS: Cholesterol 257.0 mg/dL (< 200); Triglycerides 181.0 mg/dL (< 150)
--- NOTE | 2025-05-01 22:21 | DVHINCON2 ---
Date of service: May 01, [address] Hdz Reason for Consultation Stroke History of Present Illness This is a stat consultation Ms. Sousa is a 70 years old right-handed female with a history of hypertension, diabetes, she was brought to the [facility] on 05/01/2025 with a chief complaint of left-sided weakness, at this time, she is alert and fully oriented, she provided the following history without bilingual staff's help On 04/27/2025, she woke up with left-sided weakness, in that she could not hold objects in the left-handed and the left leg is weak that affected her gait, she also woke up with crawling sensation in the left face, and upper extremities, her weakness and paresthesia remained about the same till now, she had a fall on 05/01/2025, she has never had similar problems previously, she denies a history of stroke She thinks she snores, her sleeps non-refreshing, she has excessive daytime sleepiness and fatigue CBC, 05/01/2025: Unremarkable CMP, 05/01/2025: Unremarkable Glucose, 05/01/2025: 324 HGB A1c, 05/01/2025: 14 TG/HDL/LDL/HDL, 05/01/2025: 181/257/207/46 Vitamin B12, 05/01/2020 5:77 seizure TSH, 05/01/2025: 1.44 CT head, 05/01/2025: No intracranial hemorrhage. Right frontal and parietal hypodense regions as described which could represent subacute infarcts. However, other lesions including metastases must be ruled out especially for the right frontal and parietal subcortical regions. Recommend MRI brain with and without contrast. CTA head, 05/01/2025: Short segment severe narrowing of the right middle cerebral artery M1 segment, concerning for acute occlusion/thromboembolic disease. Recommend neurology/neuro IR consultation Small caliber left vertebral artery with narrowing/ atresia of the V4 segment. 4 mm saccular aneurysm arising off the supraclinoid right ICA Past Medical History Hypertension, diabetes Past Surgical History Tubal ligation, hysterectomy Family History Cerebral family member had heart attacks Social History She denies a history of tobacco smoke, drug and alcohol abuse Allergies: Coded Allergies: NO KNOWN ALLERGIES (Unverified , 10/02/24) Home Meds Active Scripts Cephalexin (KEFLEX CAPSULE) 250 Mg Cp, 250 MG PO QID for 5 Days, #20 BOTTLE Prov:MAKEDA CHESTER MD 10/02/24 Current Medications Current Medications Medications (Trade) Dose Ordered Sig/Mary Route PRN Reason Start Time Stop Time Status Last Admin Acetaminophen (Tylenol Tablet) 325 mg Q4HP PRN PO MILD PAIN (1-3 PAIN SCALE) 05/01/25 21:15 Amlodipine Besylate (Norvasc Tablet) 5 mg DAILY PO 05/02/25 10:00 Diagnostic Test (Pha) (Accu-Chek Comfort Curve T) 1 strip ACHS 05/01/25 22:00 Insulin Human Regular (InsuLIN R) ACHS SC 05/01/25 22:00 Dextrose 50 ml UD PRN IV Blood Sugar LESS THAN 60 05/01/25 21:15 Atorvastatin Calcium (Lipitor) 40 mg HS PO 05/01/25 22:00 Review of Systems As above, the other systems are negative Vital Signs Vital Signs Date Time Temp Pulse Resp B/P (MAP) Pulse Ox O2 Delivery O2 Flow Rate FiO2 05/01/25 19:37 98.5 78 16 181/79 (113) 97 98.5 Physical Exam GENERAL EXAM: General: the patient is well developed and nourished. No acute distress. HEENT: Normocephalic, neck is supple, no carotid bruits. No mass RESPIRATORY: Normal respiratory effort with symmetrical lung expansion. Lungs clear to auscultation. CARDIOVASCULAR: Regular rate and rhythm with no murmurs. S1, S2. ABDOMEN: Soft, nontender, normal bowel sound NEUROLOGICAL: MENTAL STATUS: Awake and alert. Oriented to person, place, time and general circumstances. Able to give personal history. SPEECH, LANGUAGE, HIGHER CORTICAL FUNCTION: no aphasia or dysathria. CRANIAL NERVES: #2: Intact visual urrutia to confrontation. The optic discs were sharp #3,4,6: Pupils are equal, round and reactive. EOMs full and conjugate. No nystagmus. The right palpebra fissure is smaller, which looks the same as her picture from before #5: Diminished pinprick and light touch in the left face. Mandibular strength intact. #7: Subtle left facial weakness of upper motor neuron pattern #8: Hearing grossly normal to voice. #9,10: Uvula and soft palate rise in the midline. Swallow and voice are normal. #11: Trapezius and sternomastoid strength intact bilaterally. #12: Tongue midline. No fasciculations or atrophy. SENSATION: Sensation to touch and pinprick is diminished in the left arm than leg MOTOR: Normal tone in the upper and lower extremity. Normal muscle bulk. No fasciculations. No abnormal movements or posturing. Muscle strength of the major groups in the right extremities is 5/5. Muscle strength of the major groups in the left extremities is: Upper: 3-4/5, lower extremity: 4-5/5. REFLEXES: Deep tendon reflexes are symmetrical. No pathological reflexes. CEREBELLAR/COORDINATION: Finger to nose is normal in the right upper extremity GAIT/STATION: deferred. Labs/Diagnostic Data Labs Test 05/01/25 15:44 05/01/25 12:21 Range/Units Phosphorus Level 3.9 2.4-5.1 mg/dL Troponin I High Sensitivity 3 L </=34 ng/L Triglycerides Level 181 H < 150 mg/dL Cholesterol Level 257 H < 200 mg/dL LDL Cholesterol 207 H < 100 mg/dL HDL Cholesterol 46 40-59 mg/dL Thyroid Stimulating Hormone (TSH) 1.44 0.55-4.78 uIU/mL White Blood Count 7.3 4.4-10.8 10^3/uL Red Blood Count 4.52 4.0-5.20 10^6/uL Hemoglobin 13.2 12.2-16.2 g/dL Hematocrit 39.1 36.0-46.0 % Mean Corpuscular Volume 86.5 80.0-100.0 fL Mean Corpuscular Hemoglobin 29.2 28.0-32.0 pg Mean Corpuscular Hemoglobin Concent 33.8 32.0-36.0 g/dL Red Cell Distribution Width 12.8 11.8-14.3 % Platelet Count 263 140-450 10^3/uL Mean Platelet Volume 8.8 6.9-10.8 fL Neutrophils (%) (Auto) 69.1 37.0-80.0 % Lymphocytes (%) (Auto) 26.4 10.0-50.0 % Monocytes (%) (Auto) 3.6 0.0-12.0 % Eosinophils (%) (Auto) 0.3 0.0-7.0 % Basophils (%) (Auto) 0.6 0.0-2.0 % Neutrophils # (Auto) 5.0 1.6-8.6 10 ^3/uL Lymphocytes # (Auto) 1.9 0.4-5.4 10 ^3/uL Monocytes # (Auto) 0.3 0-1.3 10 ^3/uL Eosinophils # (Auto) 0 0-0.8 10 ^3/uL Basophils # (Auto) 0 0-0.2 10 ^3/uL Nucleated Red Blood Cells 0.0 % Prothrombin Time 10.5 9.3-11.8 sec Prothrombin Time INR 0.99 0.9-1.15 Activated Partial Thromboplast Time 25.5 24.5-34.5 SEC Sodium Level 134 L 136-145 mmol/L Potassium Level 3.7 3.5-5.1 mmol/L Chloride Level 99 98-107 mmol/L Carbon Dioxide Level 25 20-31 mmol/L Anion Gap 10 5-15 Blood Urea Nitrogen 22 9-23 mg/dL Creatinine 0.94 0.550-1.02 mg/dL Glomerular Filtration Rate Calc 65 >90 mL/min BUN/Creatinine Ratio 23.4 H 10.0-20.0 Serum Glucose 324 H 74-106 mg/dL Hemoglobin A1c > 14.0 H <5.7 % A1C Calcium Level 9.3 8.7-10.4 mg/dL Magnesium Level 1.7 1.6-2.6 mg/dL Total Bilirubin 0.5 0.2-1.0 mg/dL Aspartate Amino Transferase (AST) 14 13-40 U/L Alanine Aminotransferase (ALT) 18 7-40 U/L Alkaline Phosphatase 106 46-116 U/L B-Type Natriuretic Peptide 74.28 0-100 pg/mL Total Protein 7.1 5.7-8.2 g/dL Albumin 4.1 3.2-4.8 g/dL Vitamin B12 Level 770 211-911 pg/mL Assessment Acute left-sided weakness, paresthesia, acute gait disturbance Small right ICA secondary aneurysm Hypersomnia Sleep-related breathing disorder Hypertension, uncontrolled hypertension Diabetes, uncontrolled diabetes Plan/Recommendation Monitoring Supportive treatment Telemetry UDS Echocardiogram MRI head Aspirin 81 mg daily Lipitor 80 mg daily Up to chair More sleep symptoms Further address brain aneurysm as outpatient Further address sleep-related breathing disorder as outpatient She is welcome to follow up with me of the charge, I will be out of town starting on 05/02/2025 The case was discussed with Dr. Hdz earlier today Progress: Poor This medical document was created using an electronic medical record system with [employer] dictation system. Although this document has been carefully reviewed, there may still be some phonetic and typographical errors. These areas are purely typographical due to imperfections of the software programs, and do not reflect any compromise in the patient's medical care. Plan discussed with: Patient, Other YINA MENDOZA MD May 01, 2025 22:21
--- NOTE | 2025-05-01 22:30 | DVH ---
Carotid Duplex Clinical History: Ischemic stroke Comparison: CT ANGIO HEAD/NECK on DOS: 05/01/25, CT STROKE CTH on DOS: 05/01/25 Technique: Duplex doppler evaluation of the extracranial carotid and vertebral arteries including color doppler and spectral/pulsed waveform analysis was performed. Findings: RIGHT SIDE: The peak systolic velocities are 59 cm/s in the CCA, 92 cm/s in the ICA. The ICA/CCA ratio is 1.5. The external carotid artery is patent with peak systolic velocity of 100 cm/s proximally. There is appropriate antegrade flow in the right vertebral artery. Mildly prominent right cervical chain lymph node, likely reactive LEFT SIDE: The peak systolic velocities are 79 cm/s in the CCA, 145 cm/s in the ICA. The ICA/CCA ratio is 1.8. The external carotid artery is patent with peak systolic velocity of 85 cm/s proximally. There is appropriate antegrade flow in the left vertebral artery. IMPRESSION: No hemodynamically significant stenosis noted in the right carotid system. Mild (<50%) stenosis of the left internal carotid artery. Reference: Radiology 2003; 229:[id number] Normal ICA PSV is <125 cm/sec and no plaque or intimal thickening is visible sonographically addition al criteria include ICA/CCA PSV ratio <2.0 and ICA EDV <40 cm/sec <50% ICA stenosis ICA PSV is <125 cm/sec and plaque or intimal thickening is visible sonographically additional criteria include ICA/CCA PSV ratio <2.0 and ICA EDV <40 cm/sec 50-69% ICA stenosis ICA PSV is 125-230 cm/sec and plaque is visible sonographically additional criter ia include ICA/CCA PSV ratio of 2.0-4.0 and ICA EDV of 40-100 cm/sec 70% ICA stenosis but less than near occlusion ICA PSV is >230 cm/sec and visible plaque and luminal n arrowing are seen at [place]-scale and color doppler ultrasound (the higher the doppler parameters lie a priscilla the threshold of 230 cm/sec, the greater the likelihood of severe disease) additional criteria i nclude ICA/CCA PSV ratio >4 and ICA EDV >100 cm/sec
[2025-05-01] MEDS: ACCU-CHEK COMFORT CURVE STRIP VI SCH (22:34)
[2025-05-01] MEDS: ATORVASTATIN 20 MG TAB PO SCH (22:34)
[2025-05-01] MEDS: InsuLIN REG 1unit/0.01ml Soln (100units/ml) SC SCH (22:41)
[2025-05-01] MEDS ORDERED: LORazepam 2MG/ML-1ML VIAL IV PRN (23:15)
[2025-05-02] VITALS (9 sets, daily range): BP systolic 121–163; BP diastolic 65–86; PULSE 70–85; RESP 14–20; TEMP 97.1–98.3; O2SAT 87–98
[2025-05-02] MEDS: ATORVASTATIN 20 MG TAB PO SCH (00:20)
[2025-05-02] MEDS: CLOPIDOGREL BISULFATE 75 MG TAB PO ONE (00:21)
--- NOTE | 2025-05-02 05:11 | ECG ---
[facility] Test Date: 2025-05-01 Test Time: 23:59:11 Pat Name: YUDELKA MOYER Department: Room: 0274T A Gender: F Field Tech: OMA : 1955 Requested By: GARRETT NOE Order Number: [id number] Reading MD: Gus Sullivan Measurements Intervals [place] Rate: 65 P: 71 FL: 152 QRS: 53 QRSD: 100 T: 33 QT: 393 QTc: 409 Interpretive Statements Sinus rhythm Electronically Signed On 05-08-2025 21:45:26 PDT by Gus Sullivan Please click the below link to view image of tracing.
[2025-05-02] MEDS ORDERED: LOSA-535 PO (07:00)
[2025-05-02 07:07] LABS: Hematocrit 38.5 % (36.0-46.0); Hemoglobin 13.1 g/dL (12.2-16.2); Mean Corpuscular Hemoglobin 29.2 pg (28.0-32.0); Mean Corpuscular Volume 85.5 fL (80.0-100.0); Nucleated Red Blood Cells % 0.1 %
[2025-05-02 07:12] LABS: Chloride 104 mmol/L (98-107); Potassium 4.0 mmol/L (3.5-5.1); Sodium 137 mmol/L (136-145)
[2025-05-02 07:13] LABS: Anion Gap 9 (5-15); Carbon Dioxide 24 mmol/L (20-31)
[2025-05-02 07:14] LABS: Calcium 9.0 mg/dL (8.7-10.4)
[2025-05-02 07:18] LABS: BUN/Creatinine Ratio 30.9 (10.0-20.0); Blood Urea Nitrogen 21 mg/dL (9-23)
[2025-05-02 07:26] LABS: Glucose 261 mg/dL (74-106)
--- NOTE | 2025-05-02 09:34 | DVH ---
CLINICAL HISTORY: cva TECHNIQUE: Routine multiplanar imaging of the brain was performed without gadolinium contrast. COMPARISON: CT ANGIO HEAD/NECK on DOS: 05/01/25, CT STROKE CTH on DOS: 05/01/25 FINDINGS: There is a iyqt-[id number] size acute right MCA territory infarct with restricted diffusion involvin g the cortex and white matter of the right parietal lobe and to a lesser extent right frontal lobe an d posterolateral temporal lobe. There is no evidence for hemorrhagic transformation. There is no evidence for mass, mass effect, or extra-axial fluid collection. There is no hydrocephalu s or midline shift. The subarachnoid cisterns are not effaced. The imaged paranasal sinuses are clear. The globes are intact. The midline structures, including the corpus callosum, are unremarkable. IMPRESSION: [id number] acute right MCA territory infarct.
[2025-05-02] MEDS ORDERED: LOSARTAN POTASSIUM 50 MG TAB PO SCH (10:00)
[2025-05-02] MEDS: CLOPIDOGREL BISULFATE 75 MG TAB PO SCH (10:05)
[2025-05-02] MEDS: LOSARTAN POTASSIUM 50 MG TAB PO SCH (10:06)
[2025-05-02] MEDS ORDERED: ARTIFICIAL TEARS 15ml EACHEYE PRN (10:45)
[2025-05-02] MEDS ORDERED: ARTIFICIAL TEARS 15ml EACHEYE ONE (10:45)
--- NOTE | 2025-05-02 12:00 | DVHPNRES ---
Progress Note Date Seen: May 02, 2025 Resident Creating Document: ANDRADE ALLEN RESIDENT Medical Necessity Reason Pt with a Central, PICC or Fol: No Subjective Review of Systems Ms. Sousa Is a 70-year-old female with prior medical history of type 2 diabetes mellitus, hypertension, and a stomach mass resected at [place], who presented to the ED with chief complaint of left sided weakness. The patient states she had sudden onset of left-sided weakness 2-3 days ago associated with paresthesias of the left side of her face and tinnitus/sounds in her left ear. The patient states she has had difficulty holding objects in her left hand and walking properly, which has progressively worsened. She is accompanied by her friend, Carmel Schrader, who states that this morning at [employer] the patient seemed weak and began to slump over toward her left side, which prompted them to bring her to the ED. She denies headaches, nausea, vomiting, changes in vision, difficulty swallowing, loss of consciousness, slurring of words, loss of sensation, and other symptoms. On evaluation in the ED, patient was hypertensive. 12 lead EKG shows normal sinus rhythm. Initial labs show CBC within normal range, hyponatremia, and hyperglycemia. Head CT shows right gilbert radiata hypodense region measuring 8 mm, right frontal subcortical hypodense region measuring 13 mm, right parietal subcu hypodense region measuring 18 mm, which could represent subacute infarcts. No intracranial hemorrhage. Head and neck CT shows short segment severe narrowing of the right middle cerebral artery M1 segment concerning for acute occlusion / thromboembolic disease, small caliber left vertebral artery with narrowing / atresia of the V4 segment, and 4 mm saccular aneurysm arising off the supraclinoid right ICA. Carotid duplex shows no hemodynamically significant stenosis noted in the right carotid system, mild less than 50% stenosis of the left internal carotid artery. She was admitted for further workup and management. Cardiovascular: HTN GI: Other (Stomach mass removed at [place]) Endocrine: Diabetes Past Surgical History: , Other (Removal of stomach mass at [place]) Smoke: No ALCOHOL: none Drugs: None Lives: with Family Domestic Violence: Neg The patient was seen and examined at bedside. She reports having weakness on the left side, however, she also have dry eyes. She denies any other new complaints. Objective vital signs Vital Sign Date Time Temp Pulse Resp B/P (MAP) Pulse Ox O2 Delivery O2 Flow Rate FiO2 05/02/25 10:06 149/76 05/02/25 09:00 97.8 70 20 95 97.8 05/02/25 03:37 Room Air* 0 21 Total Intake and Output 05/01/25 05/01/25 05/02/25 15:00 23:00 07:00 Intake Total 0 ml Balance 0 ml medications Current Medications Medications Dose Ordered Sig/Mary Route Start Time Stop Time Status Last Admin Dose Admin Acetaminophen 325 mg Q4HP PRN PO 05/01/25 21:15 Diagnostic Test (Pha) 1 strip ACHS 05/01/25 22:00 05/02/25 06:31 1 STRIP Insulin Human Regular ACHS SC 05/01/25 22:00 05/02/25 06:35 8 UNITS Dextrose 50 ml UD PRN IV 05/01/25 21:15 Atorvastatin Calcium 80 mg HS PO 05/01/25 23:15 05/02/25 00:20 80 MG Aspirin 81 mg DAILY PO 05/02/25 10:00 05/02/25 10:06 81 MG Lorazepam 1 mg ONCE PRN IV 05/01/25 23:15 Clopidogrel Bisulfate 75 mg DAILY PO 05/02/25 10:00 05/02/25 10:05 75 MG Amlodipine Besylate 5 mg DAILY PO 05/02/25 10:00 05/02/25 10:05 5 MG Losartan Potassium 50 mg DAILY PO 05/02/25 10:00 05/02/25 10:06 50 MG Artificial Tears 1 drop Q2HP PRN EACHEYE 05/02/25 10:45 Examination Pt is lying on bed General Appearance: Alert, Oriented X3, Cooperative, Mild distress HEENT: Atraumatic, Mucous membranes moist/pink Respiratory: Clear to auscultation, Normal air movement, No added sounds Cardiovascular: Regular rate, Normal S1, Normal S2, No murmurs Abdominal/ : Active bowel sounds, Soft, no distention, no tenderness Extremities: No edema, Normal pulses, No tenderness/swelling, left upper and lower extremity 4/5 strength. Skin: No Significant rash, except past surgical scars Neuro: Normal speech, sensorimotor deficits none Psych/Mental Status: Mental status NL, Mood NL Nurse was there as pot sander during examination laboratory and microbiology Laboratory Tests 05/02/25 06:34 Test 05/02/25 06:34 Range/Units Serum Glucose 261 H 74-106 mg/dL Labs and/or images reviewed: Labs reviewed by me, Image(s) reviewed by me Problem List/Assessment/Plan Problem List/Assessment/Plan Acute left-sided weakness, paresthesias, and gait disturbance secondary to subacute ischemic stroke -Head Ct: Head CT shows right gilbert radiata hypodense region measuring 8 mm, right frontal subcortical hypodense region measuring 13 mm, right parietal subcu hypodense region measuring 18 mm, which could represent subacute infarcts. No intracranial hemorrhage. -Head and Neck CT: Short segment severe narrowing of the right middle cerebral artery M1 segment concerning for acute occlusion / thromboembolic disease, small caliber left vertebral artery with narrowing / atresia of the V4 segment, and 4 mm saccular aneurysm arising off the supraclinoid right ICA. -No thrombolysis or thrombectomy is indicated at this time given that patient has presented outside window -Neurology: Recommend monitoring, supportive treatment, telemetry, echocardiogram, MRI head, aspirin 81 mg daily, Lipitor 80 mg daily -Aspirin 325 mg p.o. once -Aspirin 81 mg p.o. daily -Atorvastatin 80 mg p.o. HS -Plavix 75 mg p.o. daily -MRI head:[id number] acute right MCA territory infarct. -Physical therapy has been consulted for evaluation -Cardiac diet Keratitis Dry eye Artificial tear b.i.d. Saccular aneurysm of right ICA - Head and neck CT: 4 mm saccular aneurysm arising off the supraclinoid right ICA - Per neurology, follow up outpatient Uncontrolled diabetes mellitus with hyperglycemia, HbA1c > 14 Insulin Lantus 40 units subcutaneous Simple hyperglycemia -Mild SSI -Accu-Cheks Hypertension -Continue Losartan 100 mg p.o. daily -IV hydralazine q.6 p.r.n. -Monitor blood pressure Mixed Hyperlipidemia - Atorvastatin 80 mg p.o. HS Mild hyponatremia (probable pseudohyponatremia due to hyperglycemia) - Monitor sodium levels diet: Cardiac GI prophylaxis: Not indicated DVT prophylaxis: Lovenox is being held due to risk of hemorrhagic transformation of stroke Goals of care discussed with the patient for 20 minutes; full code Case discussed with Dr. Foote, Patient and Family Plan discussed with: Patient, Other (RN) My Orders My Orders Orders - ANDRADE ALLEN Procedure Category Date Status Time Artificial Tear 15ml PHA 9/26/25 In Process Opthalmic (Tears Na 10:45 Addendum Addendum Addendum I was physically present for the gutierres portions of the service provided to patient by THE RESIDENT. I have reviewed the documentation, discussed the case with resident and agree with the resident's documentation except as noted. Also the patient's clinical case was discussed with the patient's nurse. This medical document was created using an electronic medical record system with computerized dictation system. Although this document has been carefully reviewed, there might still be some phonetic and typographical errors. These areas are purely typographical due to imperfections of the software programs, and do not reflect any compromise in the patient's medical care. Late signature. Date of Service: May 02, 2025 Billing Provider: DANIEL FOOTE MD Common Visit Codes: 81807-[id number] INP/OBS CARE(HIGH) Secondary Visit Codes: 51087-[id number] CARE PLAN 30 MINUTES (20 minutes) ANDRADE ALLEN RESIDENT May 02, 2025 12:00 DANIEL FOOTE MD May 04, 2025 14:08
[2025-05-02] MEDS: INSULIN LANTUS (GLARGINE) 1 /0.01ml (100units/ml) SC ONE (12:51)
--- NOTE | 2025-05-02 18:47 | DVHSR ---
APPROVED REPORT EXAM: Two-dimensional and M-mode echocardiogram with Doppler and color Doppler. Blood Pressure: 141/75 mmHg INDICATION Ischemic stroke eval for source RISK FACTORS Height: 63, Weight: 153 DIMENSIONS LVDd3.4 (3.8-5.7cm)LA (2D)3.3 (1.9-4.0cm)Aortic Root2.9 (2.0-3.7cm) LVDs2.4 (2.5-4.0cm)LA (MM) (1.9-4.0cm)Aortic Cusp Exc1.9 (1.5-2.0cm) EF (%) 58.0 (55-70%)Rt. Atrium3.0 (1.9-4.0cm)Asc. Aorta cm IVSd1.3 (0.7-1.1cm)RV (D) (1.8-2.4cm) PWd1.3 (0.7-1.1cm) Mitral Valve MitralMitral Stenosis E wave0.47m/sMV Mean GR.mmHg A wave0.86m/sMV Peak GR.mmHg E/A ratio0.52D MVAcm2 DECEL [id number] 1/2 Uqdo94mo IVRTmsDop MVA3.33cm2 Aortic Valve Aortic ValveAortic Stenosis V11.05m/Deedee Mean GR.7mmHg V21.87m/Deedee Peak GR.14mmHg LVOT Diameter2.1 (1.8-2.4cm)Doppler AVA1.94cm2 Pulmonic Valve V20.91m/s Tricuspid Valve TR Velocity2.24m/s [id number] Conclusion MILD LVH AND MILD LV DIASTOLIC DYSFUNCTION LV EF IS 65% MODERATELY CALCIFIED AORTIC LEAFLET AORTIC VALVE AREA IS 1.9 CM SQUARE AND IS EARLY STAGE OF MILD AORTIC STENOSIS NO EFFUSION SUGGESTION: REPEAT ECHO AFTER ONE YEAR FOR AORTIC VALVE EVALUATION
[2025-05-02] MEDS ORDERED: DEXTROSE (50%) 50ML SYRG IV PRN (19:15)
[2025-05-02] MEDS: INSULIN LANTUS (GLARGINE) 1 /0.01ml (100units/ml) SC SCH (22:09)
[2025-05-03] MEDS: InsuLIN REG 1unit/0.01ml Soln (100units/ml) SC SCH
[2025-05-03] MEDS: ACCU-CHEK COMFORT CURVE STRIP VI SCH (00:13)
[2025-05-03 01:00] VITALS: BP 155/93; PULSE 81; RESP 18; TEMP 97.5; O2SAT 99
[2025-05-03 05:00] VITALS: BP 157/83; PULSE 74; RESP 18; TEMP 97.5; O2SAT 97
[2025-05-03 08:00] VITALS: PULSE 76; RESP 19
[2025-05-03] MEDS: LOSARTAN POTASSIUM 50 MG TAB PO SCH (09:03)
[2025-05-03] MEDS ORDERED: CLOP75TA70 PO (11:06)
[2025-05-03] MEDS ORDERED: ASPI-325 PO (11:06)
[2025-05-03] MEDS ORDERED: AML5T PO (11:06)
[2025-05-03] MEDS ORDERED: ATOR20TA50 PO (11:06)
[2025-05-03 15:34] VITALS: BP 142/87; PULSE 68; RESP 18; TEMP 36.4; O2SAT 96
[2025-05-03] MEDS: hydrALAZINE HCL 20 MG/ML VL IV PRN (15:55)
--- NOTE | 2025-05-03 17:17 | DVHDSRES ---
Discharge Summary Date of Admission Resident Creating Document: ANDRADE ALLEN May 01, 2025 at 21:09 Date of Discharge: May 03, 2025 Admitting Diagnosis Left-sided weakness Labs/Diagnostic Data: Laboratory Results Test 05/03/25 11:03 05/02/25 06:34 05/01/25 15:44 05/01/25 12:21 POC Glucose 277 mg/dl (70-106) White Blood Count 7.4 10^3/uL (4.4-10.8) Red Blood Count 4.50 10^6/uL (4.0-5.20) Hemoglobin 13.1 g/dL (12.2-16.2) Hematocrit 38.5 % (36.0-46.0) Mean Corpuscular Volume 85.5 fL (80.0-100.0) Mean Corpuscular Hemoglobin 29.2 pg (28.0-32.0) Mean Corpuscular Hemoglobin Concent 34.2 g/dL (32.0-36.0) Red Cell Distribution Width 12.7 % (11.8-14.3) Platelet Count 250 10^3/uL (140-450) Mean Platelet Volume 8.8 fL (6.9-10.8) Neutrophils (%) (Auto) 61.1 % (37.0-80.0) Lymphocytes (%) (Auto) 30.3 % (10.0-50.0) Monocytes (%) (Auto) 6.5 % (0.0-12.0) Eosinophils (%) (Auto) 1.4 % (0.0-7.0) Basophils (%) (Auto) 0.7 % (0.0-2.0) Neutrophils # (Auto) 4.5 10 ^3/uL (1.6-8.6) Lymphocytes # (Auto) 2.2 10 ^3/uL (0.4-5.4) Monocytes # (Auto) 0.5 10 ^3/uL (0-1.3) Eosinophils # (Auto) 0.1 10 ^3/uL (0-0.8) Basophils # (Auto) 0.1 10 ^3/uL (0-0.2) Nucleated Red Blood Cells 0.1 % Sodium Level 137 mmol/L (136-145) Potassium Level 4.0 mmol/L (3.5-5.1) Chloride Level 104 mmol/L (98-107) Carbon Dioxide Level 24 mmol/L (20-31) Anion Gap 9 (5-15) Blood Urea Nitrogen 21 mg/dL (9-23) Creatinine 0.68 mg/dL (0.550-1.02) Glomerular Filtration Rate Calc 94 mL/min (>90) BUN/Creatinine Ratio 30.9 (10.0-20.0) Serum Glucose 261 mg/dL (74-106) Calcium Level 9.0 mg/dL (8.7-10.4) Phosphorus Level 3.9 mg/dL (2.4-5.1) Troponin I High Sensitivity 3 ng/L (</=34) Triglycerides Level 181 mg/dL (< 150) Cholesterol Level 257 mg/dL (< 200) LDL Cholesterol 207 mg/dL (< 100) HDL Cholesterol 46 mg/dL (40-59) Thyroid Stimulating Hormone (TSH) 1.44 uIU/mL (0.55-4.78) Prothrombin Time 10.5 sec (9.3-11.8) Prothrombin Time INR 0.99 (0.9-1.15) Activated Partial Thromboplast Time 25.5 SEC (24.5-34.5) Hemoglobin A1c > 14.0 % A1C (<5.7) Magnesium Level 1.7 mg/dL (1.6-2.6) Total Bilirubin 0.5 mg/dL (0.2-1.0) Aspartate Amino Transferase (AST) 14 U/L (13-40) Alanine Aminotransferase (ALT) 18 U/L (7-40) Alkaline Phosphatase 106 U/L (46-116) B-Type Natriuretic Peptide 74.28 pg/mL (0-100) Total Protein 7.1 g/dL (5.7-8.2) Albumin 4.1 g/dL (3.2-4.8) Vitamin B12 Level 770 pg/mL (211-911) Other Laboratory Tests 05/02/25 06:34 Brief Hx & Hospital Course: Ms. Sousa Is a 70-year-old female with prior medical history of type 2 diabetes mellitus, hypertension, and a stomach mass resected at [place], who presented to the ED with chief complaint of left sided weakness. The patient states she had sudden onset of left-sided weakness 2-3 days ago associated with paresthesias of the left side of her face and tinnitus/sounds in her left ear. The patient states she has had difficulty holding objects in her left hand and walking properly, which has progressively worsened. She is accompanied by her friend, Carmel Schrader, who states that this morning at [employer] the patient seemed weak and began to slump over toward her left side, which prompted them to bring her to the ED. She denies headaches, nausea, vomiting, changes in vision, difficulty swallowing, loss of consciousness, slurring of words, loss of sensation, and other symptoms. On evaluation in the ED, patient was hypertensive. 12 lead EKG shows normal sinus rhythm. Initial labs show CBC within normal range, hyponatremia, and hyperglycemia. Head CT shows right gilbert radiata hypodense region measuring 8 mm, right frontal subcortical hypodense region measuring 13 mm, right parietal subcu hypodense region measuring 18 mm, which could represent subacute infarcts. No intracranial hemorrhage. Head and neck CT shows short segment severe narrowing of the right middle cerebral artery M1 segment concerning for acute occlusion / thromboembolic disease, small caliber left vertebral artery with narrowing / atresia of the V4 segment, and 4 mm saccular aneurysm arising off the supraclinoid right ICA. Carotid duplex shows no hemodynamically significant stenosis noted in the right carotid system, mild less than 50% stenosis of the left internal carotid artery. She was admitted for further workup and management. Cardiovascular: HTN GI: Other (Stomach mass removed at [place]) Endocrine: Diabetes Past Surgical History: , Other (Removal of stomach mass at [place]) Smoke: No ALCOHOL: none Drugs: None Lives: with Family Domestic Violence: Neg On physical exam left-sided weakness was noted. Head CT shows right gilbert radiata hypodense region measuring 8 mm, right frontal subcortical hypodense region measuring 13 mm, right parietal subcu hypodense region measuring 18 mm, which could represent subacute infarcts. No intracranial hemorrhage. Head and Neck CT: Short segment severe narrowing of the right middle cerebral artery M1 segment concerning for acute occlusion / thromboembolic disease, small caliber left vertebral artery with narrowing / atresia of the V4 segment, and 4 mm saccular aneurysm arising off the supraclinoid right ICA. No thrombolysis or thrombectomy was given that patient has presented outside window. Neurology recommendations were appreciated, supportive treatment, telemetry monitoring, echocardiogram MRI head aspirin 81 mg daily and Lipitor 80 mg daily was done she was continued on Plavix 75 mg p.o. daily MRI had revealed [id number] acute right MCA territory infarct, physical therapy was done inpatient. The patient was on cardiac diet. Uncontrolled hypertension was managed with losartan and IV hydralazine. Mild pseudo hyponatremia was managed with control of blood sugar. Her uncontrolled diabetes mellitus with hyperglycemia HbA1c more than 14 was managed with insulin sliding scale. Patient is advised to follow up with PCP for home health, the discharge plan and treatment was explained to the patient and the niece. They verbalized understanding. The patient was hemodynamically stable, conversive and we will follow up with us in [place] clinic in a week. The patient is about to follow up with Neurology for saccular aneurysm and long-term management of stroke. Physical examination on the day of discharge: General Appearance: Alert, Oriented X3, Cooperative, Mild distress HEENT: Atraumatic, Mucous membranes moist/pink Respiratory: Clear to auscultation, Normal air movement, No added sounds Cardiovascular: Regular rate, Normal S1, Normal S2, No murmurs Abdominal/ : Active bowel sounds, Soft, no distention, no tenderness Extremities: No edema, Normal pulses, No tenderness/swelling, left upper and lower extremity 4/5 strength. Skin: No Significant rash, except past surgical scars Neuro: Normal speech, sensorimotor deficits none Psych/Mental Status: Mental status NL, Mood NL Nurse was there as information technology coordinator during examination Discussed with Dr. Foote Consults/Reason for consult Neurology for acute stroke Operations or Procedures Echocardiogram: MILD LVH AND MILD LV DIASTOLIC DYSFUNCTION LV EF IS 65% MODERATELY CALCIFIED AORTIC LEAFLET AORTIC VALVE AREA IS 1.9 CM SQUARE AND IS EARLY STAGE OF MILD AORTIC STENOSIS NO EFFUSION SUGGESTION: REPEAT ECHO AFTER ONE YEAR FOR AORTIC VALVE EVALUATION Head CT: Right coronary radiata hypodense region measuring 8 mm, right frontal subcortical hypodense region measuring 13 mm, right parietal hypodense region 18 mm, could be subacute infarcts Head and neck CT: Short segment severe narrowing of the right middle cerebral artery, small caliber left vertebral artery with narrowing, 4 mm saccular aneurysm arising of the supraclinoid right ICA HbA1c 14 Condition at Discharge: Stable Final Diagnosis/Problems List Ischemic stroke with left-sided weakness Saccular aneurysm of the right ICA Keratitis Uncontrolled diabetes mellitus with hyperglycemia, HbA1c above 14 Hypertension Mixed hyperlipidemia Mild hyponatremia Discharge Disposition: Home Discharge Instruct/Medications Diet: Consistent carbohydrate, Cardiac 2g Na,low cholest Activity: No Restrictions, As Tolerated Follow Up/Referral: Follow up with DC clinic with Dr. Foote and neurologist in 1 or 2 weeks Medications: Aspirin, Plavix, atorvastatin Scheduled Amlodipine Besylate (Norvasc Tablet), 5 MG PO DAILY Aspirin (Aspirin Low Dose), 81 MG PO DAILY Atorvastatin Calcium (Atorvastatin Calcium), 80 MG PO HS Clopidogrel Bisulfate (Clopidogrel), 75 MG PO DAILY Losartan Potassium (Losartan Potassium), 1 TAB PO DAILY, (Reported) Discontinued Medications Cephalexin (Keflex Capsule), 250 MG PO QID Discharge Statement: "Patient was advised to return to the ER or call 911 if any headaches, dizziness, shortness of breath, chest pain, abdominal pain, bleeding, fevers, or worsening of medical condition. Patient was counseled about treatment plan, medications, possible side effects, patientverbalized understanding. All questions were answered to the best of my ability. This discharge took greater then 30 minutes in planning, reviewing documentation, counseling the patient, and discussing with other team members." ASSESSMENT ASSESSMENT Assessment Ischemic stroke with left-sided weakness Saccular aneurysm of the right ICA Keratitis Uncontrolled diabetes mellitus with hyperglycemia, HbA1c above 14 Hypertension Mixed hyperlipidemia Mild hyponatremia Date of Service: May 03, 2025 Billing Provider: DANIEL FOOTE MD Common Visit Codes: 53717-VUB/OBS DISCH DAY >30min ANDRADE ALLEN May 03, 2025 17:17 DANIEL FOOTE MD May 04, 2025 14:09
== END 2025-05-03 17:02 | disposition home or self-care (01) | DRG 65 ==
LOC: ER 11:28 → OVERFLOW 21:09 → TELE-WESTW 05-02 02:00
PROVIDERS: ADMIT Internal Medicine; ATTEND Internal Medicine
DX: I63.9 Cerebral infarction, unspecified (principal); E87.1 Hypo-osmolality and hyponatremia; G81.94 Hemiplegia, unspecified affecting left nondominant side; I67.1 Cerebral aneurysm, nonruptured; I10 Essential (primary) hypertension; G47.10 Hypersomnia, unspecified; H16.9 Unspecified keratitis; E78.2 Mixed hyperlipidemia; E11.65 Type 2 diabetes mellitus with hyperglycemia; H04.122 Dry eye syndrome of left lacrimal gland; Z79.899 Other long term (current) drug therapy; Z98.51 Tubal ligation status; Z90.710 Acquired absence of both cervix and uterus; Z79.82 Long term (current) use of aspirin
CPT/HCPCS: 36415; 70450; 70496; 70498; 70551; 71045; 80048; 80053; 80061; 82607; 82962; 83036; 83735; 83880; 84100; 84443; 84484; 85025; 85610; 85730; 93005; 93306; 93886; 96374; 97110; 97116; 97163; 97530; G0378; J1815

== ENCOUNTER 2025-05-05 18:14 | Inpatient (IN) | payer MEDICARE, MEDICAID ==
[~2025-05-05] VITALS: Ht 160 cm; Wt 69.9 kg
[2025-05-05] MEDS: SODIUM CHLORIDE 0.9% 1,000 ML IV SCH
[~2025-05-05 18:14] MED LIST changes: +AML5T PO; +ASPI-325 PO; +ATOR20TA50 PO; -CEPH250C PO; +CLOP75TA70 PO; +LOSA-535 PO
--- NOTE | 2025-05-05 18:36 | ED.PDOC ---
HPI (NEURO) HPI Comments 70-year-old female with a history of recent right MCA distribution stroke and left-sided weakness now returns to the emergency department, she was discharged a few days ago to home and now has a hard time performing ADLs at home. 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 Hx Family History Family History: Reviewed,noncontributory to illness Social History Smoker: Non-Smoker Alcohol: Denies ETOH Use Drugs: Denies Drug Use Lives In: Home Constitutional: reports: fatigue, weakness Neurological: reports: left sided numbness, left sided weakness, pre-existing deficit, weakness All Other Systems: Reviewed and Negative Physical Exam General Appearance: Mild Distress HEENT: Normal ENT Inspection, Pharynx Normal, TMs Normal Neck: Full Range of Motion, Non-Tender, Normal, Normal Inspection Respiratory: Chest Non-Tender, Lungs Clear, No Accessory Muscle Use, No Respiratory Distress, Normal Breath Sounds Cardiovascular: No Edema, No JVD, No Murmur, No Gallop, Normal Peripheral Pulses, Regular Rate/Rhythm Breast Exam: Deferred Gastrointestinal: No Organomegaly, Non Tender, No Pulsatile Mass, Normal Bowel Sounds, Soft Genitalia: Deferred Pelvic: Deferred Rectal: Deferred Extremities: No calf tenderness, Normal capillary refill, Normal inspection, Normal range of motion, Non-tender, No pedal edema Musculoskeletal : Apperance: Normal Neurologic: Other (Left hemiparesis and left facial weakness with central sparing, unchanged per family) Cerebellar Function: Normal Reflexes: Normal Skin: Dry, Normal Color, Warm Lymphatic: No Adenopathy Was a procedure done? Was a procedure done?: No Differential Diagnosis (SZ) Seizure: Psychogenic Seizure, Closed Head Injury, CVA/TIA, Hypoglycemia, Hypoxemia, Syncope, Encephalopathy, Other X-Ray, Labs, Meds, VS Vital Signs Date Time Temp Pulse Resp B/P (MAP) Pulse Ox O2 Delivery O2 Flow Rate FiO2 05/05/25 18:24 98 05/05/25 18:22 97.4 101 18 173/88 97 97.4 Lab Test 05/05/25 18:50 Range/Units White Blood Count 8.7 4.4-10.8 10^3/uL Red Blood Count 4.84 4.0-5.20 10^6/uL Hemoglobin 14.4 12.2-16.2 g/dL Hematocrit 42.2 36.0-46.0 % Mean Corpuscular Volume 87.2 80.0-100.0 fL Mean Corpuscular Hemoglobin 29.7 28.0-32.0 pg Mean Corpuscular Hemoglobin Concent 34.0 32.0-36.0 g/dL Red Cell Distribution Width 13.1 11.8-14.3 % Platelet Count 302 140-450 10^3/uL Mean Platelet Volume 8.8 6.9-10.8 fL Neutrophils (%) (Auto) 62.3 37.0-80.0 % Lymphocytes (%) (Auto) 31.3 10.0-50.0 % Monocytes (%) (Auto) 5.1 0.0-12.0 % Eosinophils (%) (Auto) 0.5 0.0-7.0 % Basophils (%) (Auto) 0.8 0.0-2.0 % Neutrophils # (Auto) 5.4 1.6-8.6 10 ^3/uL Lymphocytes # (Auto) 2.7 0.4-5.4 10 ^3/uL Monocytes # (Auto) 0.4 0-1.3 10 ^3/uL Eosinophils # (Auto) 0 0-0.8 10 ^3/uL Basophils # (Auto) 0.1 0-0.2 10 ^3/uL Nucleated Red Blood Cells 0.1 % Prothrombin Time 10.6 9.3-11.8 sec Prothrombin Time INR 1.00 0.9-1.15 Activated Partial Thromboplast Time 23.6 L 24.5-34.5 SEC Sodium Level 138 136-145 mmol/L Potassium Level 3.8 3.5-5.1 mmol/L Chloride Level 102 98-107 mmol/L Carbon Dioxide Level 23 20-31 mmol/L Anion Gap 13 5-15 Blood Urea Nitrogen 12 9-23 mg/dL Creatinine 0.80 0.550-1.02 mg/dL Glomerular Filtration Rate Calc 79 >90 mL/min BUN/Creatinine Ratio 15.0 10.0-20.0 Serum Glucose 319 H 74-106 mg/dL Calcium Level 9.5 8.7-10.4 mg/dL Magnesium Level 2.2 1.6-2.6 mg/dL Total Bilirubin 0.7 0.2-1.0 mg/dL Aspartate Amino Transferase (AST) 25 13-40 U/L Alanine Aminotransferase (ALT) 19 7-40 U/L Alkaline Phosphatase 130 H 46-116 U/L Troponin I High Sensitivity 3 L </=34 ng/L Total Protein 7.8 5.7-8.2 g/dL Albumin 4.4 3.2-4.8 g/dL EXAM: CT HEAD WITHOUT CONTRAST INDICATION: left sided weakness, recent stroke TECHNIQUE: CT of the head without intravenous contrast. Radiation Dose Information: CT Dose: CTDI volume is 51.54 mGy. Dose-length product is 929.42 mGy*cm The dose indicators for CT are the volume Computed Tomography (CT) Dose Index (CTDIvol) and the Dose Length Product (DLP), and are measured in units of mGy and mGy-cm, respectively. These indicators are not patient dose, but values gen erated from the CT scanner acquisition factors. The report includes radiation exposure data for exposures received during this examination. COMPARISON: CT STROKE CTH on DOS: 05/01/25 FINDINGS: There is no evidence of acute intracranial hemorrhage, extra-axial collection, mass effect, midline shift, herniation or hydrocephalus. Small area of encephalomalacia in the right posterior parietal lobe consistent with previous study of 05/02/2025 which demonstrated recent infarct. Was noted in the distribution of the right middle cerebral artery . The area in the right periventricular region appears slightly larger on previous study and may represent mild extension of the ischemic infarct in the right frontal parietal lobe. The ventricles, sulci and cisterns are age appropriate. The oviedo-white differentiation is intact. Patchy periventricular and subcortical white matter hypoattenuation is nonspecific but may be related to small vessel ischemic disease. The visualized paranasal sinuses and mastoid air cells are clear. The surrounding soft tissues and osseous structures are unremarkable. IMPRESSION: 1. Slight extension of the infarct in the right frontal parietal lobe when compared to 05/01/2025. Most likely representing maturation of CT findings pre vious infarct. Persistent distribution in the right middle cerebral artery. 2. No acute intracranial hemorrhage. CRITICAL FINDINGS Critical Result: Stroke Alert SLIGHT EXTENSION OF PREVIOUSLY INFARCT NOTED ON 05/01/2025. Findings discussed with , at 05/05/2025 07:08 PM, and acknowledged receipt and understanding of the findings. .. Time of 1ST Reevaluation: 18:35 Reevaluation 1ST: Unchanged Patient Education/Counseling: Diagnosis, Treatment Family Education/Counseling: Diagnosis, Treatment Departure 1 Departure Time of Disposition: 19:45 Impression: Primary Impression: Stroke Additional Impression: Type 2 diabetes mellitus with hyperglycemia Disposition: ADMITTED INPATIENT Admit to: Med Surg Condition: Guarded Discharged With: Self, Relative Comments 70-year-old female with recently admitted for right-sided MCA stroke causing left hemiparesis now with worsening symptoms. CT of the head does show more extensive injury from the stroke. Patient was given aspirin. On lab review she is quite hyperglycemic. Patient was given IV fluids and insulin. Patient will need to be admitted for stroke with left-sided hemiparesis and uncontrolled diabetes with hyperglycemia. Critical Care Note Critical Care Time?: No Stability Stability form required: No Heart Score Heart Score: Heart Score Response (Comments) Value History Slightly Suspicious 0 EKG Repolarization Disturb 1 Age >65 2 Risk Factors 1 or 2 risk factors 1 Troponin Normal limit 0 Total 4 I personally scribed for BAUTISTA SOSA MD ([email or web address]) on 05/05/25 at 19:44. Electronically submitted by Manav Andersen ([email or web address]). BAUTISTA SOSA MD May 05, 2025 18:36
--- NOTE | 2025-05-05 18:40 | ECG ---
[facility] Test Date: 2025-05-05 Test Time: 18:24:38 Pat Name: YUDELKA MOYER Department: Room: 0280T Gender: F Quencher Operator: : 1955 Requested By: BAUTISTA SOSA Order Number: [id number] Reading MD: Gus Sullivan Measurements Intervals [place] Rate: 98 P: 67 SD: 143 QRS: 40 QRSD: 94 T: 46 QT: 351 QTc: 449 Interpretive Statements Sinus rhythm Borderline T abnormalities, lateral leads Minimal ST elevation, anterior leads Electronically Signed On 05-08-2025 22:07:23 PDT by Gus Sullivan Please click the below link to view image of tracing.
--- NOTE | 2025-05-05 19:16 | DVH ---
EXAM: CT HEAD WITHOUT CONTRAST INDICATION: left sided weakness, recent stroke TECHNIQUE: CT of the head without intravenous contrast. Radiation Dose Information: CT Dose: CTDI volume is 51.54 mGy. Dose-length product is 929.42 mGy*cm The dose indicators for CT are the volume Computed Tomography (CT) Dose Index (CTDIvol) and the Dose Length Product (DLP), and are measured in units of mGy and mGy-cm, respectively. These indicators are not patient dose, but values generated from the CT scanner acquisition factors. The report includes radiation exposure data for exposures received during this examination. COMPARISON: CT STROKE CTH on DOS: 05/01/25 FINDINGS: There is no evidence of acute intracranial hemorrhage, extra-axial collection, mass effect, midline s hift, herniation or hydrocephalus. Small area of encephalomalacia in the right posterior parietal lobe consistent with previous study of 05/02/2025 which demonstrated recent infarct. Was noted in the distribution of the right middle cere bral artery . The area in the right periventricular region appears slightly larger on previous study and may represent mild extension of the ischemic infarct in the right frontal parietal lobe. The ventricles, sulci and cisterns are age appropriate. The oviedo-white differentiation is intact. Patchy periventricular and subcortical white matter hypoattenuation is nonspecific but may be related to small vessel ischemic disease. The visualized paranasal sinuses and mastoid air cells are clear. The surrounding soft tissues and osseous structures are unremarkable. IMPRESSION: 1. Slight extension of the infarct in the right frontal parietal lobe when compared to 05/01/2025. Mo st likely representing maturation of CT findings previous infarct. Persistent distribution in the rig ht middle cerebral artery. 2. No acute intracranial hemorrhage. CRITICAL FINDINGS Critical Result: Stroke Alert SLIGHT EXTENSION OF PREVIOUSLY INFARCT NOTED ON 05/01/2025. Findings discussed with , at 05/05/2025 07:08 PM, and acknowledged receipt and understanding of the f indings. ..
[2025-05-05 19:27] LABS: Hematocrit 42.2 % (36.0-46.0); Hemoglobin 14.4 g/dL (12.2-16.2); Mean Corpuscular Hemoglobin 29.7 pg (28.0-32.0); Mean Corpuscular Volume 87.2 fL (80.0-100.0); Nucleated Red Blood Cells % 0.1 %
[2025-05-05 19:35] LABS: INR 1.0 (0.9-1.15); Partial Thromboplastin Time 23.6 SEC (24.5-34.5); Prothrombin Time 10.6 sec (9.3-11.8)
[2025-05-05 19:38] LABS: Alanine Aminotransferase 19 U/L (7-40); Albumin 4.4 g/dL (3.2-4.8); Anion Gap 13 (5-15); BUN/Creatinine Ratio 15.0 (10.0-20.0); Blood Urea Nitrogen 12 mg/dL (9-23); Calcium 9.5 mg/dL (8.7-10.4); Carbon Dioxide 23 mmol/L (20-31); Chloride 102 mmol/L (98-107); Magnesium 2.2 mg/dL (1.6-2.6); Potassium 3.8 mmol/L (3.5-5.1); Sodium 138 mmol/L (136-145); Total Protein 7.8 g/dL (5.7-8.2)
[2025-05-05 19:39] LABS: Bilirubin, Total 0.7 mg/dL (0.2-1.0)
[2025-05-05 19:41] LABS: Alkaline Phosphatase 130 U/L (46-116); Glucose 319 mg/dL (74-106)
[2025-05-05 21:48] LABS: Triglycerides 130.0 mg/dL (< 150)
[2025-05-05 21:49] LABS: Magnesium 2.2 mg/dL (1.6-2.6)
[2025-05-05 21:50] LABS: Cholesterol 191.0 mg/dL (< 200); HDL Cholesterol 47.0 mg/dL (40-59)
[2025-05-05 22:00] VITALS: PULSE 84; RESP 18; O2SAT 99
[2025-05-05 22:14] LABS: Lipase 34.0 U/L (12-53)
[2025-05-05] MEDS: InsuLIN REG 1unit/0.01ml Soln (100units/ml) SC ONE (22:21)
[2025-05-05 22:32] LABS: INR 0.98 (0.9-1.15); Partial Thromboplastin Time 25.2 SEC (24.5-34.5); Prothrombin Time 10.4 sec (9.3-11.8)
[2025-05-05] MEDS ORDERED: ACETAMINOPHEN 325 MG TAB PO PRN (23:15)
[2025-05-05] MEDS ORDERED: ONDANSETRON HCL 4 MG/2 ML VIAL IV PRN (23:15)
[2025-05-05] MEDS ORDERED: MORPHINE SULFATE INJ 2 MG/ml SYRG IV PRN (23:15)
--- NOTE | 2025-05-05 23:18 | DVHHPRES ---
History of Present Illness Resident Creating Document: NIGEL GILLESPIE RESIDENT History of Present Illness This is a 70-year-old female with significant past medical history of hypertension, hyperlipidemia, diabetes mellitus, ischemic stroke last week not treated with fibrinolytics due to prolonged window, presented to the ER with chief complain of worsening left-sided weakness. She was recently hospitalized in [facility] for right MCA distribution stroke and left-sided weakness. She complained of worsening left-sided weakness since 1 day, she describes not being able to move her arms or legs at all, previously she was somewhat able to move her limbs. Patient complains of dizziness since last 3 days with feeling of her head spinning. Patient uses wheelchair for ambulation. Family reported that patient has fallen multiple times, 4 times today. Family also reported increased slurring of speech. Previous hospitalization: Admitted to [facility] for ischemic stroke with left-sided weakness, saccular aneurysm of the right ICA; Discharged on 05/02/2025. PMHx: Hypertension, hyperlipidemia, diabetes mellitus, stroke PSHx: Hysterectomy for benign tumor Social history: Denies smoking, alcohol, recreational drug use. Lives in home with family. Full code. Next to kin-son Xavi Home medication: Amlodipine, clopidogrel, aspirin, atorvastatin Allergic history: No known allergies Patient examined at bedside today. Marked weakness of the left side of face, right hand and right leg. Review of Systems Neurological: Weakness, Change in speech Allergies: Coded Allergies: NO KNOWN ALLERGIES (Unverified , 10/02/24) Exam Vital Signs Vital Signs Date Time Temp Pulse Resp B/P (MAP) Pulse Ox O2 Delivery O2 Flow Rate FiO2 05/05/25 18:24 98 05/05/25 18:22 97.4 18 173/88 97 97.4 Exam General: Patient alert and oriented in person, place and time. Patient following commands. HEENT: Normocephalic, atraumatic, moist mucous membranes Respiratory/pulmonary: Clear lungs bilaterally, vesicular murmurs present in almost all lung urrutia, no associated crackles or wheezes. Cardiovascular: Normal heart sounds S1 and S2 with no associated murmurs Abdomen: Abdomen nondistended, there is no pain to palpation in any of the abdominal quadrants, no palpable masses. Extremities: There is no peripheral edema present at the lower extremities. Peripheral Pulses: 3+ Radial (R). 3+ Radial (L). 3+ Dorsalis pedis (R). 3+ Dorsalis pedis(L) Skin: No rashes or pruritus, there is no sacral edema present at this time. Neurological: Drooping of face on left side, unable to frown or smile from the side of the face. Motor strength left hand 0/5, right hand 3/5; left leg 1/5, right leg 4/5. Sensory strength left side 2/5, right side 5/5. Labs/Xrays Labs Test 05/05/25 21:54 05/05/25 18:50 Range/Units Prothrombin Time 10.4 9.3-11.8 sec Prothrombin Time INR 0.98 0.9-1.15 Activated Partial Thromboplast Time 25.2 24.5-34.5 SEC Troponin I High Sensitivity 4 </=34 ng/L White Blood Count 8.7 4.4-10.8 10^3/uL Red Blood Count 4.84 4.0-5.20 10^6/uL Hemoglobin 14.4 12.2-16.2 g/dL Hematocrit 42.2 36.0-46.0 % Mean Corpuscular Volume 87.2 80.0-100.0 fL Mean Corpuscular Hemoglobin 29.7 28.0-32.0 pg Mean Corpuscular Hemoglobin Concent 34.0 32.0-36.0 g/dL Red Cell Distribution Width 13.1 11.8-14.3 % Platelet Count 302 140-450 10^3/uL Mean Platelet Volume 8.8 6.9-10.8 fL Neutrophils (%) (Auto) 62.3 37.0-80.0 % Lymphocytes (%) (Auto) 31.3 10.0-50.0 % Monocytes (%) (Auto) 5.1 0.0-12.0 % Eosinophils (%) (Auto) 0.5 0.0-7.0 % Basophils (%) (Auto) 0.8 0.0-2.0 % Neutrophils # (Auto) 5.4 1.6-8.6 10 ^3/uL Lymphocytes # (Auto) 2.7 0.4-5.4 10 ^3/uL Monocytes # (Auto) 0.4 0-1.3 10 ^3/uL Eosinophils # (Auto) 0 0-0.8 10 ^3/uL Basophils # (Auto) 0.1 0-0.2 10 ^3/uL Nucleated Red Blood Cells 0.1 % Sodium Level 138 136-145 mmol/L Potassium Level 3.8 3.5-5.1 mmol/L Chloride Level 102 98-107 mmol/L Carbon Dioxide Level 23 20-31 mmol/L Anion Gap 13 5-15 Blood Urea Nitrogen 12 9-23 mg/dL Creatinine 0.80 0.550-1.02 mg/dL Glomerular Filtration Rate Calc 79 >90 mL/min BUN/Creatinine Ratio 15.0 10.0-20.0 Serum Glucose 319 H 74-106 mg/dL Calcium Level 9.5 8.7-10.4 mg/dL Phosphorus Level 3.4 2.4-5.1 mg/dL Magnesium Level 2.2 1.6-2.6 mg/dL Total Bilirubin 0.7 0.2-1.0 mg/dL Aspartate Amino Transferase (AST) 25 13-40 U/L Alanine Aminotransferase (ALT) 19 7-40 U/L Alkaline Phosphatase 130 H 46-116 U/L C-Reactive Protein High Sensitivity 0.84 <1.0 mg/dL Total Protein 7.8 5.7-8.2 g/dL Albumin 4.4 3.2-4.8 g/dL Triglycerides Level 130 < 150 mg/dL Cholesterol Level 191 < 200 mg/dL LDL Cholesterol 140 H < 100 mg/dL HDL Cholesterol 47 40-59 mg/dL Lipase 34 12-53 U/L Vitamin B12 Level 924 H 211-911 pg/mL Vitamin D 25-Hydroxy 36.1 30.0-100 ng/mL Thyroid Stimulating Hormone (TSH) 1.73 0.55-4.78 uIU/mL SEPSIS Sepsis Screen Date sepsis recognized/suspect: May 05, 2025 Time Sepsis recognized/suspect: 1824 Recent Procedure: No On Antibiotic Therapy: No Respiratory Rate >20: No Heart Rate >90: Yes Temp<36 C (96.8 F) or >38.3 C: No SBP <90 or MAP <65 mmHG: No New Acute Mental Status Change: No Is the patient on CPAP, BIPAP,: No Physician Orders Heplock Iv (05/05/25 18:25) Head Without Contrast (05/05/25 18:26) Drug Screen (05/05/25 21:04) Urinalysis (05/05/25 21:04) Admit (05/05/25 23:09) Vital Signs Date Time Temp Pulse Resp B/P (MAP) Pulse Ox O2 Delivery O2 Flow Rate FiO2 05/05/25 18:24 98 05/05/25 18:22 97.4 101 18 173/88 97 97.4 Laboratory Tests Test 05/05/25 18:50 White Blood Count 8.7 10^3/uL (4.4-10.8) Medications Medications Dose Ordered Sig/Mary Route Start Time Stop Time Status Last Admin Dose Admin Aspirin 162 mg ONCE ONCE PO 05/05/25 19:45 05/05/25 19:46 DC 05/05/25 19:45 162 MG Insulin Human Regular 5 units ONCE ONCE SC 05/05/25 19:45 05/05/25 19:46 DC 05/05/25 22:21 5 UNITS Assessment/Plan Assessment/Plan Rule out ischemic stroke History of right MCA ischemic stroke Acute hemorrhagic stroke, ruled out Saccular aneurysm of right ICA Mild stenosis of left internal carotid artery CT head shows slight extension of the infarct in the right frontal parietal lobe, no acute hemorrhage. Brain MRI ordered Continue aspirin 81 mg p.o., atorvastatin 80 mg p.o., Plavix 75 mg p.o. Consult physical therapy Fall precautions ordered Monitor on telemetry Completed carotid duplex and previous admission which showed Mild (<50%) stenosis of the left internal carotid artery. Insulin dependent type 2 diabetes mellitus, uncontrolled Simple Hyperglycemia Sliding scale insulin Last A1c 9 12/24/2024 more than 14 Monitor blood glucose Diabetes education Diabetic diet Essential Hypertension Continue losartan 100 mg daily, amlodipine 5 mg daily Hyperlipidemia Continue atorvastatin 80 mg daily LDL reduced from 200 to approximately 140. Continue with high dose statins DIET: NPO DVT PROPHYLAXIS: Lovenox GI PROPHYLAXIS: Protonix CODE STATUS: Goals of care discussed with patient, son, nurses at bedside for more than 37 minutes. Full code DISPOSITION: Telemetry Patient's status and plan discussed with the patient. Case discussed with Dr. Flores Plan discussed with: Patient, Son, Other (Nurses) My Orders Orders - NIGEL GILLESPIE RESIDENT Procedure Category Date Status Time Drug Screen LAB 05/05/25 Logged 21:04 Urinalysis LAB 05/05/25 Logged 21:04 Admit ADMIT 05/05/25 Verified 23:09 Date of Service: May 05, 2025 Billing Provider: TAMEKA MOTA MD Common Visit Codes: [id number] INP/OBS CARE (HIGH) Secondary Visit Codes: [id number] CARE PLAN 30 MINUTES NIGEL GILLESPIE RESIDENT May 05, 2025 23:18 FOREST [facility] RESIDENT May 06, 2025 08:56
[2025-05-05] MEDS: SODIUM CHLORIDE 0.9% 1,000 ML IV ONE (23:34)
[2025-05-06] VITALS (8 sets, daily range): BP systolic 142–157; BP diastolic 63–83; PULSE 64–102; RESP 16–18; TEMP 97.3–97.9; O2SAT 95–100
[2025-05-06] MEDS ORDERED: DEXTROSE (50%) 50ML SYRG IV PRN ×2 (00:45→09:15)
[2025-05-06] MEDS: ATORVASTATIN 20 MG TAB PO ONE (01:24)
[2025-05-06] MEDS: CLOPIDOGREL BISULFATE 75 MG TAB PO ONE (01:25)
[2025-05-06] MEDS: LOSARTAN POTASSIUM 50 MG TAB PO ONE (01:25)
[2025-05-06] MEDS: ACCU-CHEK COMFORT CURVE STRIP VI SCH ×2 (06:04→12:08)
[2025-05-06] MEDS: InsuLIN REG 1unit/0.01ml Soln (100units/ml) SC SCH ×3 (06:04→22:06)
[2025-05-06 07:18] LABS: Hematocrit 39.9 % (36.0-46.0); Hemoglobin 13.6 g/dL (12.2-16.2); Mean Corpuscular Hemoglobin 29.6 pg (28.0-32.0); Mean Corpuscular Volume 86.9 fL (80.0-100.0); Nucleated Red Blood Cells % 0.1 %
[2025-05-06 07:42] LABS: Alanine Aminotransferase 18 U/L (7-40); Albumin 4.1 g/dL (3.2-4.8); Anion Gap 12 (5-15); BUN/Creatinine Ratio 17.9 (10.0-20.0); Blood Urea Nitrogen 10 mg/dL (9-23); Calcium 9.0 mg/dL (8.7-10.4); Carbon Dioxide 23 mmol/L (20-31); Chloride 105 mmol/L (98-107); Potassium 3.6 mmol/L (3.5-5.1); Sodium 140 mmol/L (136-145); Total Protein 7.1 g/dL (5.7-8.2)
[2025-05-06 07:43] LABS: Bilirubin, Total 0.8 mg/dL (0.2-1.0)
[2025-05-06 07:44] LABS: Alkaline Phosphatase 118 U/L (46-116); Glucose 237 mg/dL (74-106)
[2025-05-06] MEDS: CLOPIDOGREL BISULFATE 75 MG TAB PO SCH (10:12)
[2025-05-06] MEDS: LOSARTAN POTASSIUM 50 MG TAB PO SCH (10:12)
[2025-05-06] MEDS: PANTOPRAZOLE 40 MG/10 ML VIAL INJ IV SCH (10:13)
[2025-05-06] MEDS: ENOXAPARIN SOD 40 MG/0.4 ML SYRINGE SC SCH (10:13)
[2025-05-06] MEDS ORDERED: MORPHINE SULFATE 4 MG/ML SYR/VIAL IV PRN (10:15)
--- NOTE | 2025-05-06 12:17 | DVH ---
CLINICAL INDICATION: Worsening weakness, history of ischemic stroke COMPARISON: CT HEAD WITHOUT CONTRAST on DOS: 05/05/25, MRI BRAIN HEAD WO CONTRAST on DOS: 05/02/25, CT ANGIO HEAD/NECK on DOS: 05/01/25 TECHNIQUE: Multisequence multiplanar MRI images of the brain were obtained without contrast. FINDINGS: Multifocal areas of restricted diffusion in the right cerebral hemisphere, involving porti ons of the frontal, parietal, and temporal lobes. A confluence area of restricted diffusion in the r ight frontal lobe adjacent to the right lateral ventricle appears new or significantly larger compare d to the recent MRI, measuring up to 3.7 x 1.9 cm. There is also a confluence of restricted diffusion or posteriorly involving the right temporal lobe and extending to the temporoparietal region measuri ng up to 4.1 x 3.1 cm. No evidence of acute infarct in the left cerebral hemisphere or in the cerebel lum or brainstem. No midline shift. Ventricles and sulci are within normal limits. Basal cisterns are patent. Cerebellum, brainstem, and midline structures are within normal limits. Mild mucosal thicken ing of the paranasal sinuses. Orbits are grossly unremarkable. IMPRESSION: 1. Areas of restricted diffusion in the right frontal lobe and right temporal lobe extending to the r ight temporoparietal region are new or larger compared to the prior exam, consistent with new or enla rging acute infarcts compared to the recent MRI. 2. Additional areas of restricted diffusion in the right cerebral hemisphere are minimally changed co mpared to the prior exam. Critical findings Critical Result: New areas of acute infarction compared to the prior MRI. Findings discussed with Christina, the RN taking care of the patient at 05/06/2025 02:14 PM CDT, and aron owledged receipt and understanding of the findings and will let the ordering physician know about the findings. ..
--- NOTE | 2025-05-06 14:10 | DVHPNRES ---
Progress Note Date Seen: May 06, 2025 Resident Creating Document: ANDRADE ALLEN RESIDENT Medical Necessity Reason Pt with a Central, PICC or Fol: No Subjective Review of Systems his is a 70-year-old female with significant past medical history of hypertension, hyperlipidemia, diabetes mellitus, ischemic stroke last week not treated with fibrinolytics due to prolonged window, presented to the ER with chief complain of worsening left-sided weakness. She was recently hospitalized in [facility] for right MCA distribution stroke and left-sided weakness. She complained of worsening left-sided weakness since 1 day, she describes not being able to move her arms or legs at all, previously she was somewhat able to move her limbs. Patient complains of dizziness since last 3 days with feeling of her head spinning. Patient uses wheelchair for ambulation. Family reported that patient has fallen multiple times, 4 times today. Family also reported increased slurring of speech. Previous hospitalization: Admitted to [facility] for ischemic stroke with left-sided weakness, saccular aneurysm of the right ICA; Discharged on 05/02/2025. PMHx: Hypertension, hyperlipidemia, diabetes mellitus, stroke PSHx: Hysterectomy for benign tumor Social history: Denies smoking, alcohol, recreational drug use. Lives in home with family. Full code. Next to kin-son Xavi Home medication: Amlodipine, clopidogrel, aspirin, atorvastatin Allergic history: No known allergies The patient was seen and examined at bedside today. Overnight events were reviewed. The patient reports she experienced a fall approximately 6 times yesterday, she reports increasing weakness in the left-sided arms and legs to the point that she can not move her arms and legs. She denies any chest pain, shortness of breath, fever or any other complaints. Objective vital signs Vital Sign Date Time Temp Pulse Resp B/P (MAP) Pulse Ox O2 Delivery O2 Flow Rate FiO2 05/06/25 10:13 157/77 05/06/25 08:43 97.3 64 18 100 97.3 05/06/25 08:20 Room Air* 0 21 Total Intake and Output 05/05/25 05/05/25 05/06/25 15:00 23:00 07:00 Intake Total 0 ml Balance 0 ml medications Current Medications Medications Dose Ordered Sig/Mary Route Start Time Stop Time Status Last Admin Dose Admin Acetaminophen 325 mg Q4HP PRN PO 05/05/25 23:15 Ondansetron HCl 4 mg Q4HP PRN IV 05/05/25 23:15 Enoxaparin Sodium 40 mg DAILY SC 05/06/25 10:00 05/06/25 10:13 40 MG Amlodipine Besylate 5 mg DAILY PO 05/06/25 10:00 05/06/25 10:13 5 MG Aspirin 81 mg DAILY PO 05/06/25 10:00 05/06/25 10:13 81 MG Clopidogrel Bisulfate 75 mg DAILY PO 05/06/25 10:00 05/06/25 10:12 75 MG Atorvastatin Calcium 80 mg HS PO 05/06/25 22:00 Pantoprazole Sodium 40 mg DAILY IV 05/06/25 10:00 05/06/25 10:13 40 MG Insulin Glargine 15 units DAILY@1000 SC 05/06/25 10:00 Diagnostic Test (Pha) 1 strip ACHS 05/06/25 11:30 Insulin Human Regular HS SC 05/06/25 22:00 Insulin Human Regular AC SC 05/06/25 11:30 Dextrose 50 ml UD PRN IV 05/06/25 09:15 Morphine Sulfate 2 mg Q4HPRN PRN IV 05/06/25 10:15 Examination Pt is lying on bed General Appearance: Alert, Oriented X3, Cooperative, Mild distress HEENT: Atraumatic, Mucous membranes moist/pink Respiratory: Clear to auscultation, Normal air movement, No added sounds Cardiovascular: Regular rate, Normal S1, Normal S2, No murmurs Abdominal/ : Active bowel sounds, Soft, no distention, no tenderness Extremities: No edema, Normal pulses, No tenderness/swelling Skin: No Significant rash, except past surgical scars Neuro: Left-sided facial droop, left arm strength 0/5, left leg strength 1/5. Psych/Mental Status: Mental status NL, Mood NL Nurse was there as hospice fellow during examination laboratory and microbiology Laboratory Tests 05/06/25 06:14 Test 05/06/25 06:14 Range/Units Serum Glucose 237 H 74-106 mg/dL Microbiology Date/Time Source Procedure Growth Status 05/06/25 01:38 Nose MRSA Screen - Final Complete Labs and/or images reviewed: Labs reviewed by me, Image(s) reviewed by me Problem List/Assessment/Plan Problem List/Assessment/Plan Rule out ischemic stroke History of right MCA ischemic stroke Acute hemorrhagic stroke, ruled out Saccular aneurysm of right ICA Mild stenosis of left internal carotid artery CT head shows slight extension of the infarct in the right frontal parietal lobe, no acute hemorrhage. Brain MRI :1. Areas of restricted diffusion in the right frontal lobe and right temporal lobe extending to the right temporoparietal region are new or larger compared to the prior exam, consistent with new or enlarging acute infarcts compared to the recent MRI.Additional areas of restricted diffusion in the right cerebral hemisphere are minimally changed compared to the prior exam. Neuro consulted Continue aspirin 81 mg p.o., atorvastatin 80 mg p.o., Plavix 75 mg p.o. Consult physical therapy Fall precautions in place Monitor on telemetry Completed carotid duplex and previous admission which showed Mild (<50%) stenosis of the left internal carotid artery. Insulin dependent type 2 diabetes mellitus, uncontrolled Simple Hyperglycemia Sliding scale insulin Last A1c 9 12/24/2024 more than 14 Monitor blood glucose Diabetes education Diabetic diet Essential Hypertension Continue losartan 100 mg daily, amlodipine 5 mg daily Hyperlipidemia Continue atorvastatin 80 mg daily LDL reduced from 200 to approximately 140. Continue with high dose statins DIET: NPO DVT PROPHYLAXIS: Lovenox GI PROPHYLAXIS: Protonix CODE STATUS: Goals of care discussed with patient, son, nurses at bedside for more than 37 minutes. Full code DISPOSITION: Telemetry Case discussed with Becki Garvey Dr.Jhajj Plan discussed with: Patient, Other (RN) My Orders My Orders Orders - ANDRADE ALLEN Procedure Category Date Status Time * Director Of Community Life CONS 05/06/25 Transmitted Consult Date of Service: May 06, 2025 Billing Provider: RAYMON GO MD Common Visit Codes: [id number] INP/OBS CARE(HIGH) Secondary Visit Codes: [id number] CARE PLAN 30 MINUTES ANDRADE ALLEN May 06, 2025 14:10 RAYMON GO MD May 12, 2025 20:06
[2025-05-06] MEDS: INSULIN LANTUS (GLARGINE) 1 /0.01ml (100units/ml) SC SCH (14:18)
--- NOTE | 2025-05-06 20:58 | BSKYNEURO ---
[place] [facility] Note # Demographics Consult Type: Acute Stroke Level 2 (4.5-24 hrs) Patient Location: Inpatient First Name: Debi Last Name: Lars Date of : 1955 Age: 70 Gender: Female Facility: [facility] Time of Initial Page (): 05/06/2025 20:16 First Contact with Site (): 05/06/2025 20:16 # HPI Chief Complaint: - weakness (focal) History: 70 y/o F was admitted on 05/01 with L sided weakness, found to have an acute ischemic stroke in the R frontal and parietal lobe. Her initial CT on 05/01 showed R frontal and parietal hypodense lesions and her CTA showed severe short segment narrowing in the R M1 concerning for an acute occlusion/thrombembolic disease. She was started on DAPT and admitted for a stroke work-up/Neurology evaluation. She was discharged home and came back on 05/05 with worsened L sided weakness. She denies a headache, double vision, loss of vision but she says her L sided is weaker and she has LLE tingling. Her family feels her speech is slurred. # Scores Time of exam and NIHSS (): 05/06/2025 20:36 Level of Consciousness 1a: [0] = Alert; keenly responsive LOC Questions 1b: [0] = Answers both questions correctly LOC Commands 1c: [0] = Performs both tasks correctly Best Gaze 2: [0] = Normal Visual 3: [0] = No visual loss Facial Palsy 4: [2] = Partial paralysis Motor Arm Left 5a: [3] = No effort against gravity Motor Arm Right 5b: [0] = No drift Motor Leg Left 6a: [3] = No effort against gravity Motor Leg Right 6b: [0] = No drift Limb Ataxia 7: [0] = Absent Sensory 8: [0] = Normal Best Language 9: [0] = No aphasia Dysarthria 10: [0] = Normal Extinction and Inattention 11: [0] = No abnormality NIHSS Total: 8 # Exam SBP: 142 DBP: 70 # PMH-FH-SH Past Medical History: - hypertension - hyperlipidemia - Diabetes Medications: - antihypertensive - diabetic medication - aspirin - plavix # Data Head CT: slight extension of the infarct in the R frontal/parietal lobe when compared to 05/01 MRI: - acute ischemia areas of restricted diffusion in the R frontal and temporal lobe extending to the R temporoparietal region, new or larger compared to prior exam, additional areas of restricted diffusion in the R cerebral hemisphere are minimally changed compared to the last exam Other Imaging: CTA head and neck (05/01)-short segment severe narrowing of M1 concerning for acute occlusion atresia of L V4, 4mm saccular aneurysm supraclinoid R ICA # Assessment Impression: - Ischemic Stroke (Acute) # Plan Thrombolytic/Intervention: Possible IA candidate Thrombolytic Exclusion (< 3 hour window): - stroke within 3 months Thrombolytic Exclusion: > 4.5 hours Possible IA Candidate: - CTA pending Labs: - CBC - comprehensive metabolic panel Imaging: (urgency: STAT): - CT Angiogram Head - CT Angiogram Neck or MRA head and neck Therapy/Evaluation: - PT/OT evaluation - NPO until swallow evaluation Medication: - aspirin 81 mg daily - clopidogrel (Plavix) 75 mg daily - start statin with goal of LDL < 70 IA Management Recommendations: - urgent consult to Neuro Interventional Radiology for potential thrombectomy If repeat vascular imaging shows new acute occlusion (potentially thromboembolic from previously seen R M1 occlusion), would consider Neuro IR consult, however given recent infarcts, pt may not be a candidate but would discuss with them Other: - If patient has any neurological deterioration please call me back immediately - telemetry monitoring - I have discussed my recommendations with the referring provider - permissive hypertension - LDL < 70 Additional Recommendations: -Hold oral anti-hypertensives x 24 hours for permissive HTN # Logistics Attestation of consult completion: The patient is located at: [facility]. Facility staff participated in the visit. I performed this telemedicine visit from my offsite office utilizing interactive 2 way audio and visual telecommunication technology at the request of the onsite inpatient provider. Total time spent in telemedicine encounter: I spent 45 minutes reviewing clinica l data and/or imaging, obtaining history, examining the patient, communicating with the onsite care team, and in preparation of this report. # Demographics First Name: Debi Last Name: Sousa Facility: [facility] Electronically signed at 05/06/2025 20:58 ([place] Time) by Baltazar Hernandez MD Yes BALTAZAR HERNANDEZ MD May 06, 2025 20:58
[2025-05-06] MEDS ORDERED: ATORVASTATIN 20 MG TAB PO SCH (22:00)
[2025-05-06] MEDS: ATORVASTATIN 20 MG TAB PO SCH (22:04)
[2025-05-06] MEDS: IOHEXOL 350 MG/ML 100ML IJ ONE (23:44)
[2025-05-07] VITALS (8 sets, daily range): BP systolic 131–154; BP diastolic 55–85; PULSE 76–94; RESP 16–18; TEMP 97.2–98.4; O2SAT 96–100
--- NOTE | 2025-05-07 00:51 | DVH ---
CT ANGIO HEAD/Neck INDICATION: worsening left weakness EXAM DATE: 05/06/2025 11:26 PM COMPARISON: MRI BRAIN HEAD WO CONTRAST on DOS: 05/06/25, CT HEAD WITHOUT CONTRAST on DOS: 05/05/25, MRI BRAIN HEAD WO CONTRAST on DOS: 05/02/25, US CAROTID DUPLX W COLOR DOP on DOS: 05/01/25, CT ANGIO HEAD/ NECK on DOS: 05/01/25 RADIATION DOSE: CTDIvol: 63.06 mGy, DLP: 63.06 mGy*cm PROCEDURE: CT images of the head were obtained. CT angiogram images were obtained of the head and ne ck. Coronal and sagittal reformatted images were created as well as 3D and/or MIP reconstructions. All CT scans at this medical facility are performed using dose modulation techniques as appropriate t o a performed exam including the following: Automated exposure control was utilized; adjustment of th e MA and/or KV according to patient size; and use of iterative reconstruction technique. FINDINGS: CT head: Continued evolution of right MCA territory infarcts. No new infarct is seen. No acute intrac ranial hemorrhage. Ventricles and sulci are within normal limits. The orbits are unremarkable. The paranasal sinuses are clear. The osseous structures are unremarkable. CTA head and neck: The caliber and course of the distal internal carotid arteries is unremarkable. Un changed short segment stenosis of the M1 segment of the right middle cerebral artery. There is multi focal atherosclerotic narrowing of the intracranial vasculature. The basilar artery is patent. The in tradural segment of the left vertebral artery is again diminutive/atretic. No evidence of large aneu rysm or arteriovenous malformation. The visualized thoracic aortic arch and proximal great vessels are unremarkable. The left common, int ernal and external carotid arteries are within normal limits. The right common, internal and external carotid arteries are within normal limits. The right vertebral artery is dominant. The left vertebr al artery is diminutive. The limited visualized lung apices are clear. The surrounding soft tissues a nd osseous structures are otherwise unremarkable. IMPRESSION: 1. Continued evolution of right MCA territorial infarcts. 2. Multifocal atherosclerotic narrowing of the intracranial vasculature with redemonstrated stenosis of the right M1 segment of the middle cerebral artery. If clinically indicated, MRA may be beneficial in further assessment.
[2025-05-07 07:42] LABS: Hematocrit 41.3 % (36.0-46.0); Hemoglobin 14.3 g/dL (12.2-16.2); Mean Corpuscular Hemoglobin 30.1 pg (28.0-32.0); Mean Corpuscular Volume 86.9 fL (80.0-100.0); Nucleated Red Blood Cells % 0.1 %
[2025-05-07 07:51] LABS: Anion Gap 12 (5-15); Carbon Dioxide 25 mmol/L (20-31); Chloride 103 mmol/L (98-107); Potassium 3.8 mmol/L (3.5-5.1); Sodium 140 mmol/L (136-145)
[2025-05-07 07:52] LABS: Calcium 9.5 mg/dL (8.7-10.4)
[2025-05-07 07:57] LABS: BUN/Creatinine Ratio 16.2 (10.0-20.0); Blood Urea Nitrogen 11 mg/dL (9-23)
[2025-05-07 08:05] LABS: Glucose 204 mg/dL (74-106)
--- NOTE | 2025-05-07 17:13 | DVHPNRES ---
Progress Note Date Seen: May 07, 2025 Resident Creating Document: ANDRADE ALLEN RESIDENT Medical Necessity Reason Pt with a Central, PICC or Fol: No Subjective Review of Systems his is a 70-year-old female with significant past medical history of hypertension, hyperlipidemia, diabetes mellitus, ischemic stroke last week not treated with fibrinolytics due to prolonged window, presented to the ER with chief complain of worsening left-sided weakness. She was recently hospitalized in [facility] for right MCA distribution stroke and left-sided weakness. She complained of worsening left-sided weakness since 1 day, she describes not being able to move her arms or legs at all, previously she was somewhat able to move her limbs. Patient complains of dizziness since last 3 days with feeling of her head spinning. Patient uses wheelchair for ambulation. Family reported that patient has fallen multiple times, 4 times today. Family also reported increased slurring of speech. Previous hospitalization: Admitted to [facility] for ischemic stroke with left-sided weakness, saccular aneurysm of the right ICA; Discharged on 05/02/2025. PMHx: Hypertension, hyperlipidemia, diabetes mellitus, stroke PSHx: Hysterectomy for benign tumor Social history: Denies smoking, alcohol, recreational drug use. Lives in home with family. Full code. Next to kin-son Xavi Home medication: Amlodipine, clopidogrel, aspirin, atorvastatin Allergic history: No known allergies The patient was seen and examined at bedside today. Overnight events were reviewed. The patient did not see any improvement in her arms and leg strength, she is feeling weak. MRI results were explained to the patient and discharge plan to SNF was discussed. She denies any chest pain, shortness of breath, fever or any other complaints. Objective vital signs Vital Sign Date Time Temp Pulse Resp B/P (MAP) Pulse Ox O2 Delivery O2 Flow Rate FiO2 05/07/25 17:09 97.4 83 17 154/84 (107) 96 97.4 05/07/25 08:00 Room Air* 0 21 Total Intake and Output 05/06/25 05/06/25 05/07/25 15:00 23:00 07:00 Intake Total 0 ml 230 ml Output Total 525 ml Balance 0 ml -295 ml medications Current Medications Medications Dose Ordered Sig/Mary Route Start Time Stop Time Status Last Admin Dose Admin Acetaminophen 325 mg Q4HP PRN PO 05/05/25 23:15 Ondansetron HCl 4 mg Q4HP PRN IV 05/05/25 23:15 Enoxaparin Sodium 40 mg DAILY SC 05/06/25 10:00 05/07/25 09:56 40 MG Aspirin 81 mg DAILY PO 05/06/25 10:00 05/07/25 09:57 81 MG Clopidogrel Bisulfate 75 mg DAILY PO 05/06/25 10:00 05/07/25 09:57 75 MG Atorvastatin Calcium 80 mg HS PO 05/06/25 22:00 05/06/25 22:04 80 MG Pantoprazole Sodium 40 mg DAILY IV 05/06/25 10:00 05/07/25 09:56 40 MG Insulin Glargine 15 units DAILY@1000 SC 05/06/25 10:00 05/07/25 09:55 15 UNITS Diagnostic Test (Pha) 1 strip ACHS 05/06/25 11:30 05/07/25 17:12 1 STRIP Insulin Human Regular HS SC 05/06/25 22:00 05/06/25 22:06 8 UNITS Insulin Human Regular AC SC 05/06/25 11:30 05/07/25 11:30 9 UNITS Dextrose 50 ml UD PRN IV 05/06/25 09:15 Morphine Sulfate 2 mg Q4HPRN PRN IV 05/06/25 10:15 Examination Examination Pt is lying on bed General Appearance: Alert, Oriented X3, Cooperative, Mild distress HEENT: Atraumatic, Mucous membranes moist/pink Respiratory: Clear to auscultation, Normal air movement, No added sounds Cardiovascular: Regular rate, Normal S1, Normal S2, No murmurs Abdominal/ : Active bowel sounds, Soft, no distention, no tenderness Extremities: No edema, Normal pulses, No tenderness/swelling Skin: No Significant rash, except past surgical scars Neuro: Left-sided facial droop, left arm strength 0/5, left leg strength 1/5. Psych/Mental Status: Mental status NL, Mood NL Nurse was there as recycling collections driver during examination laboratory and microbiology Laboratory Tests 05/07/25 06:20 Test 05/07/25 06:20 Range/Units Serum Glucose 204 H 74-106 mg/dL Microbiology Date/Time Source Procedure Growth Status 05/06/25 01:38 Nose MRSA Screen - Final Complete Labs and/or images reviewed: Labs reviewed by me, Image(s) reviewed by me Problem List/Assessment/Plan Problem List/Assessment/Plan Rule out ischemic stroke History of right MCA ischemic stroke Acute hemorrhagic stroke, ruled out Saccular aneurysm of right ICA Mild stenosis of left internal carotid artery CT head shows slight extension of the infarct in the right frontal parietal lobe, no acute hemorrhage. Brain MRI :1. Areas of restricted diffusion in the right frontal lobe and right temporal lobe extending to the right temporoparietal region are new or larger compared to the prior exam, consistent with new or enlarging acute infarcts compared to the recent MRI.Additional areas of restricted diffusion in the right cerebral hemisphere are minimally changed compared to the prior exam. Neuro consulted: Continue aspirin, statin and Plavix. Neuro advised for neuro IR consult. Given the patient is having the symptoms more than 24 hours and anterior stroke ruled out, no neuro consult at this moment. Continue conservative management with physical therapy. Continue aspirin 81 mg p.o., atorvastatin 80 mg p.o., Plavix 75 mg p.o. Consult physical therapy Fall precautions in place Monitor on telemetry Completed carotid duplex and previous admission which showed Mild (<50%) stenosis of the left internal carotid artery. Insulin dependent type 2 diabetes mellitus, uncontrolled Simple Hyperglycemia Sliding scale insulin Last A1c 9 12/24/2024 more than 14 Monitor blood glucose Diabetes education Diabetic diet Essential Hypertension Continue losartan 100 mg daily, amlodipine 5 mg daily Hyperlipidemia Continue atorvastatin 80 mg daily LDL reduced from 200 to approximately 140. Continue with high dose statins Social [facility] consulted for placement in SNF with physical therapy. DIET: NPO DVT PROPHYLAXIS: Lovenox GI PROPHYLAXIS: Protonix CODE STATUS: Goals of care discussed with patient, son, nurses at bedside for more than 37 minutes. Full code DISPOSITION: Telemetry Case discussed with Becki Garvey, Jhajj Plan discussed with: Patient, Other (RN) Plan discussed with: Patient, Son, Other (RN) Date of Service: May 10, 2025 Billing Provider: RAYMON GO MD Common Visit Codes: [id number] INP/OBS CARE(HIGH) ANDRADE ALLEN RESIDENT May 07, 2025 17:13 RAYMON GO MD May 12, 2025 20:07
[2025-05-08 01:00] VITALS: BP 149/73; PULSE 78; RESP 16; TEMP 97.3; O2SAT 96
[2025-05-08 05:00] VITALS: BP 141/71; PULSE 69; RESP 17; TEMP 97.7; O2SAT 96
[2025-05-08 08:00] VITALS: PULSE 75; PULSE 89; RESP 17; O2SAT 100
[2025-05-08 08:01] LABS: Hematocrit 38.9 % (36.0-46.0); Hemoglobin 13.6 g/dL (12.2-16.2); Mean Corpuscular Hemoglobin 30.1 pg (28.0-32.0); Mean Corpuscular Volume 85.8 fL (80.0-100.0); Nucleated Red Blood Cells % 0.1 %
[2025-05-08 08:05] LABS: Anion Gap 12 (5-15); Calcium 9.3 mg/dL (8.7-10.4); Carbon Dioxide 24 mmol/L (20-31); Chloride 102 mmol/L (98-107); Potassium 3.8 mmol/L (3.5-5.1); Sodium 138 mmol/L (136-145)
[2025-05-08 08:11] LABS: BUN/Creatinine Ratio 18.3 (10.0-20.0); Blood Urea Nitrogen 13 mg/dL (9-23)
[2025-05-08 08:12] LABS: Glucose 201 mg/dL (74-106)
[2025-05-08 09:00] VITALS: BP 162/89; PULSE 92; RESP 17; TEMP 97.8; O2SAT 96
[2025-05-08] MEDS ORDERED: POLYETHYLENE GLYCOL 17 GM PWDR PO PRN ×2 (11:00→11:30)
[2025-05-08] MEDS ORDERED: POLYETHYLENE GLYCOL 17 GM PWDR PO ONE (11:00)
[2025-05-08 11:29] VITALS: BP 157/77; PULSE 92; RESP 17; TEMP 97.8; O2SAT 96
[2025-05-08] MEDS: INSULIN LISPRO (HUMAN) 100 UNITS/ML ML SC SCH (11:30)
[2025-05-08] MEDS ORDERED: HYDROcodone-ACET 5/325MG TAB PO PRN (11:30)
[2025-05-08] MEDS ORDERED: ONDANSETRON ODT 4 MG TAB PO PRN (11:45)
[2025-05-08] MEDS ORDERED: DEXTROSE (50%) 50ML SYRG IV PRN (11:45)
[2025-05-08] MEDS ORDERED: ACETAMINOPHEN 325 MG TAB PO PRN (11:45)
[2025-05-08] MEDS: INSULIN LISPRO (HUMAN) 100 UNITS/ML ML SC ONE (12:37)
[2025-05-08 13:00] VITALS: BP 158/86; PULSE 91; RESP 17; TEMP 98; O2SAT 96
[2025-05-08] MEDS: POLYETHYLENE GLYCOL 17 GM PWDR PO ONE (13:02)
[2025-05-08] MEDS: DOCUSATE SOD 100 MG CAP PO ONE (13:02)
[2025-05-08] MEDS ORDERED: ACCU-CHEK COMFORT CURVE STRIP VI SCH (17:00)
--- NOTE | 2025-05-08 18:43 | DVHDSRES ---
Discharge Summary Date of Admission Resident Creating Document: ANDRADE ALLEN May 05, 2025 at 23:09 Date of Discharge: May 08, 2025 Admitting Diagnosis Acute ischemic stroke Labs/Diagnostic Data: Laboratory Results Test 05/08/25 12:03 05/08/25 06:01 05/06/25 06:14 05/05/25 21:54 POC Glucose 341 mg/dl (70-106) White Blood Count 7.7 10^3/uL (4.4-10.8) Red Blood Count 4.53 10^6/uL (4.0-5.20) Hemoglobin 13.6 g/dL (12.2-16.2) Hematocrit 38.9 % (36.0-46.0) Mean Corpuscular Volume 85.8 fL (80.0-100.0) Mean Corpuscular Hemoglobin 30.1 pg (28.0-32.0) Mean Corpuscular Hemoglobin Concent 35.0 g/dL (32.0-36.0) Red Cell Distribution Width 12.8 % (11.8-14.3) Platelet Count 274 10^3/uL (140-450) Mean Platelet Volume 9.1 fL (6.9-10.8) Neutrophils (%) (Auto) 54.1 % (37.0-80.0) Lymphocytes (%) (Auto) 37.9 % (10.0-50.0) Monocytes (%) (Auto) 6.1 % (0.0-12.0) Eosinophils (%) (Auto) 1.1 % (0.0-7.0) Basophils (%) (Auto) 0.8 % (0.0-2.0) Neutrophils # (Auto) 4.1 10 ^3/uL (1.6-8.6) Lymphocytes # (Auto) 2.9 10 ^3/uL (0.4-5.4) Monocytes # (Auto) 0.5 10 ^3/uL (0-1.3) Eosinophils # (Auto) 0.1 10 ^3/uL (0-0.8) Basophils # (Auto) 0.1 10 ^3/uL (0-0.2) Nucleated Red Blood Cells 0.1 % Sodium Level 138 mmol/L (136-145) Potassium Level 3.8 mmol/L (3.5-5.1) Chloride Level 102 mmol/L (98-107) Carbon Dioxide Level 24 mmol/L (20-31) Anion Gap 12 (5-15) Blood Urea Nitrogen 13 mg/dL (9-23) Creatinine 0.71 mg/dL (0.550-1.02) Glomerular Filtration Rate Calc 91 mL/min (>90) BUN/Creatinine Ratio 18.3 (10.0-20.0) Serum Glucose 201 mg/dL (74-106) Calcium Level 9.3 mg/dL (8.7-10.4) Total Bilirubin 0.8 mg/dL (0.2-1.0) Aspartate Amino Transferase (AST) 23 U/L (13-40) Alanine Aminotransferase (ALT) 18 U/L (7-40) Alkaline Phosphatase 118 U/L (46-116) Total Protein 7.1 g/dL (5.7-8.2) Albumin 4.1 g/dL (3.2-4.8) Prothrombin Time 10.4 sec (9.3-11.8) Prothrombin Time INR 0.98 (0.9-1.15) Activated Partial Thromboplast Time 25.2 SEC (24.5-34.5) Troponin I High Sensitivity 4 ng/L (</=34) Test 05/05/25 18:50 Phosphorus Level 3.4 mg/dL (2.4-5.1) Magnesium Level 2.2 mg/dL (1.6-2.6) C-Reactive Protein High Sensitivity 0.84 mg/dL (<1.0) Triglycerides Level 130 mg/dL (< 150) Cholesterol Level 191 mg/dL (< 200) LDL Cholesterol 140 mg/dL (< 100) HDL Cholesterol 47 mg/dL (40-59) Lipase 34 U/L (12-53) Vitamin B12 Level 924 pg/mL (211-911) Vitamin D 25-Hydroxy 36.1 ng/mL (30.0-100) Thyroid Stimulating Hormone (TSH) 1.73 uIU/mL (0.55-4.78) Other Laboratory Tests 05/08/25 06:01 Brief Hx & Hospital Course: , 70-year-old female with significant past medical history of hypertension, hyperlipidemia, diabetes mellitus, ischemic stroke last week not treated with fibrinolytics due to prolonged window, presented to the ER with chief complain of worsening left-sided weakness. She was recently hospitalized in [facility] for right MCA distribution stroke and left-sided weakness. She complained of worsening left-sided weakness since 1 day, she describes not being able to move her arms or legs at all, previously she was somewhat able to move her limbs. Patient complains of dizziness since last 3 days with feeling of her head spinning. Patient uses wheelchair for ambulation. Family reported that patient has fallen multiple times, 4 times today. Family also reported increased slurring of speech. Previous hospitalization: Admitted to [facility] for ischemic stroke with left-sided weakness, saccular aneurysm of the right ICA; Discharged on 05/02/2025. PMHx: Hypertension, hyperlipidemia, diabetes mellitus, stroke PSHx: Hysterectomy for benign tumor Social history: Denies smoking, alcohol, recreational drug use. Lives in home with family. Full code. Next to kin-son Xavi Home medication: Amlodipine, clopidogrel, aspirin, atorvastatin Allergic history: No known allergies On arrival to the ED CT head was done which reveals slight extension of the infarct in the right frontal parietal lobe, no acute hemorrhage. Brain MRI revealed areas of restricted diffusion in the right frontal lobe and right temporal lobe extending to the right temporoparietal region are new or larger compared to the prior exam. As the patient was out of the window and no anterior circulation stroke, so the patient was out of the window for mechanical thrombectomy. Aspirin, Plavix and atorvastatin was continued. The patient was advised on importance of continuing these medications. The patient was given physical therapy during the admission. Carotid duplex showed mild stenosis of the left internal carotid artery. The patient's uncontrolled insulin-dependent type 2 diabetes mellitus was managed with sliding scale insulin. Hypertension was managed with losartan and amlodipine. Her constipation was managed with MiraLax and Colace b.i.d.. Social Service arranged placement to SNF with physical therapy. Patient was discharged with all the instructions and medications explained and written. The patient verbalized understanding. The patient was advised to follow up in [place] clinic and with PCP in 2 weeks. Examination Pt is lying on bed General Appearance: Alert, Oriented X3, Cooperative, Mild distress HEENT: Atraumatic, Mucous membranes moist/pink Respiratory: Clear to auscultation, Normal air movement, No added sounds Cardiovascular: Regular rate, Normal S1, Normal S2, No murmurs Abdominal/ : Active bowel sounds, Soft, no distention, no tenderness Extremities: No edema, Normal pulses, No tenderness/swelling Skin: No Significant rash, except past surgical scars Neuro: Left-sided facial droop, left arm strength 0/5, left leg strength 1/5. Psych/Mental Status: Mental status NL, Mood NL Nurse was there as software engineer kernel during examination Operations or Procedures [place] [address] Ph: [phone] DIAGNOSTIC IMAGING Diagnostic Imaging Report : [id number] Signed PATIENT: YUDELKA MOYER ACCT: [id number] UNIT: [id number] : 1955 LOC: [facility] ROOM / BED: [facility] / A AGE / SEX: 70 / F ADM STATUS: ADM IN SERVICE 29 ORDERING PHYSICIAN: ROLAND DEGROOT RESIDENT PROCEDURE(s): [place] - ANGIO HEAD/Neck REASON: worsening left weakness ORDER NUMBER(s): [id number], ACCESSION NUMBER(s): [id number] CT ANGIO HEAD/Neck INDICATION: worsening left weakness EXAM DATE: 05/06/2025 11:26 PM COMPARISON: MRI BRAIN HEAD WO CONTRAST on DOS: 05/06/25, CT HEAD WITHOUT CONTRAST on DOS: 05/05/25, MRI BRAIN HEAD WO CONTRAST on DOS: 05/02/25, US CAROTID DUPLX W COLOR DOP on DOS: 05/01/25, CT ANGIO HEAD/NECK on DOS: 05/01/25 RADIATION DOSE: CTDIvol: 63.06 mGy, DLP: 63.06 mGy*cm PROCEDURE: CT images of the head were obtained. CT angiogram images were obtained of the head and neck. Coronal and sagittal reformatted images were created as well as 3D and/or MIP reconstructions. All CT scans at this medical facility are performed using dose modulation techniques as appropriate to a performed exam including the following: Automated exposure control was utilized; adjustment of the MA and/or KV according to patient size; and use of iterative reconstruction technique. FINDINGS: CT head: Continued evolution of right MCA territory infarcts. No new infarct is seen. No acute intracranial hemorrhage. Ventricles and sulci are within normal limits. The orbits are unremarkable. The paranasal sinuses are clear. The osseous structures are unremarkable. CTA head and neck: The caliber and course of the distal internal carotid arteries is unremarkable. Unchanged short segment stenosis of the M1 segment of the right middle cerebral artery. There is multifocal atherosclerotic narrowing of the intracranial vasculature. The basilar artery is patent. The intradural segment of the left vertebral artery is again diminutive/atretic. No evidence of large aneurysm or arteriovenous malformation. The visualized thoracic aortic arch and proximal great vessels are unremarkable. The left common, internal and external carotid arteries are within normal limits. The right common, internal and external carotid arteries are within normal limits. The right vertebral artery is dominant. The left vertebral artery is diminutive. The limited visualized lung apices are clear. The surrounding soft tissues and osseous structures are otherwise unremarkable. IMPRESSION: 1. Continued evolution of right MCA territorial infarcts. 2. Multifocal atherosclerotic narrowing of the intracranial vasculature with redemonstrated stenosis of the right M1 segment of the middle cerebral artery. If clinically indicated, MRA may be beneficial in further assessment. [address] [place] [address] Ph: [phone] DIAGNOSTIC IMAGING Diagnostic Imaging Report : [id number] Signed PATIENT: YUDELKA MYOER ACCT: [id number] UNIT: [id number] : 1955 LOC: [facility] ROOM / BED: [facility] / A AGE / SEX: 70 / F ADM STATUS: ADM IN SERVICE 0530 ORDERING PHYSICIAN: NIGEL GILLESPIE RESIDENT PROCEDURE(s): MB - BRAIN HEAD WO CONTRAST REASON: Worsening weakness, history of ischemic stroke ORDER NUMBER(s): [id number], ACCESSION NUMBER(s): [id number] CLINICAL INDICATION: Worsening weakness, history of ischemic stroke COMPARISON: CT HEAD WITHOUT CONTRAST on DOS: 05/05/25, MRI BRAIN HEAD WO CONTRAST on DOS: 05/02/25, CT ANGIO HEAD/NECK on DOS: 05/01/25 TECHNIQUE: Multisequence multiplanar MRI images of the brain were obtained without contrast. FINDINGS: Multifocal areas of restricted diffusion in the right cerebral hemisphere, involving portions of the frontal, parietal, and temporal lobes. A confluence area of restricted diffusion in the right frontal lobe adjacent to the right lateral ventricle appears new or significantly larger compared to the recent MRI, measuring up to 3.7 x 1.9 cm. There is also a confluence of restricted diffusion or posteriorly involving the right temporal lobe and extending to the temporoparietal region measuring up to 4.1 x 3.1 cm. No evidence of acute infarct in the left cerebral hemisphere or in the cerebellum or brainstem. No midline shift. Ventricles and sulci are within normal limits. Basal cisterns are patent. Cerebellum, brainstem, and midline structures are within normal limits. Mild mucosal thickening of the paranasal sinuses. Orbits are grossly unremarkable. IMPRESSION: 1. Areas of restricted diffusion in the right frontal lobe and right temporal lobe extending to the right temporoparietal region are new or larger compared to the prior exam, consistent with new or enlarging acute infarcts compared to the recent MRI. 2. Additional areas of restricted diffusion in the right cerebral hemisphere are minimally changed compared to the prior exam. Critical findings Critical Result: New areas of acute infarction compared to the prior MRI. Findings discussed with Christina, the RN taking care of the patient at 05/06/2025 02:14 PM CDT, and acknowledged receipt and understanding of the findings and will let the ordering physician know about the findings. .. ATED BY: ZEKE REEVES DO DICTATED DATE/TIME: 05/06/251214 SIGNED BY: ZEKE REEVES DO SIGNED DATE/TIME: 05/06/251214 Ph: [phone] DIAGNOSTIC IMAGING Diagnostic Imaging Report : [id number] Signed PATIENT: YUDELKA MOYER ACCT: [id number] UNIT: [id number] : 1955 LOC: ER ROOM / BED: / AGE / SEX: 70 / F ADM STATUS: REG ER SERVICE 25 ORDERING PHYSICIAN: BAUTISTA SOSA MD PROCEDURE(s): HWOCT - HEAD WITHOUT CONTRAST REASON: left sided weakness, recent stroke ORDER NUMBER(s): [id number], ACCESSION NUMBER(s): [id number] EXAM: CT HEAD WITHOUT CONTRAST INDICATION: left sided weakness, recent stroke TECHNIQUE: CT of the head without intravenous contrast. Radiation Dose Information: CT Dose: CTDI volume is 51.54 mGy. Dose-length product is 929.42 mGy*cm The dose indicators for CT are the volume Computed Tomography (CT) Dose Index (CTDIvol) and the Dose Length Product (DLP), and are measured in units of mGy and mGy-cm, respectively. These indicators are not patient dose, but values generated from the CT scanner acquisition factors. The report includes radiation exposure data for exposures received during this examination. COMPARISON: CT STROKE CTH on DOS: 05/01/25 FINDINGS: There is no evidence of acute intracranial hemorrhage, extra-axial collection, mass effect, midline shift, herniation or hydrocephalus. Small area of encephalomalacia in the right posterior parietal lobe consistent with previous study of 05/02/2025 which demonstrated recent infarct. Was noted in the distribution of the right middle cerebral artery . The area in the right periventricular region appears slightly larger on previous study and may represent mild extension of the ischemic infarct in the right frontal parietal lobe. The ventricles, sulci and cisterns are age appropriate. The [place]-white differentiation is intact. Patchy periventricular and subcortical white matter hypoattenuation is nonspecific but may be related to small vessel ischemic disease. The visualized paranasal sinuses and mastoid air cells are clear. The surrounding soft tissues and osseous structures are unremarkable. IMPRESSION: 1. Slight extension of the infarct in the right frontal parietal lobe when compared to 05/01/2025. Most likely representing maturation of CT findings previous infarct. Persistent distribution in the right middle cerebral artery. 2. No acute intracranial hemorrhage. CRITICAL FINDINGS Critical Result: Stroke Alert SLIGHT EXTENSION OF PREVIOUSLY INFARCT NOTED ON 05/01/2025. Findings discussed with , at 05/05/2025 07:08 PM, and acknowledged receipt and understanding of the findings. .. ATED BY: RANDOLPH NICHOLS Jr., DO DICTATED DATE/TIME: 05/05/251913 SIGNED BY: RANDOLPH NICHOLS Jr., SIGNED DATE/TIME: 05/05/251913 CC: Condition at Discharge: Stable Final Diagnosis/Problems List Acute ischemic stroke History of right MCA ischemic stroke Acute hemorrhagic stroke, ruled out Saccular aneurysm of right ICA Mild stenosis of left internal carotid artery Insulin dependent type 2 diabetes mellitus, uncontrolled Essential Hypertension Hyperlipidemia Discharge Disposition: Long Term Facility Discharge Instruct/Medications Diet: Consistent carbohydrate, Cardiac 2g Na,low cholest Activity: No Restrictions, As Tolerated Follow Up/Referral: Follow up with PCP in 1 or 2 weeks Medications: As per SNF paper Scheduled Amlodipine Besylate (Norvasc Tablet), 5 MG PO DAILY Aspirin (Aspirin Low Dose), 81 MG PO DAILY Atorvastatin Calcium (Atorvastatin Calcium), 80 MG PO HS Clopidogrel Bisulfate (Clopidogrel), 75 MG PO DAILY Losartan Potassium (Losartan Potassium), 1 TAB PO DAILY, (Reported) Discharge Statement: "Patient was advised to return to the ER or call 911 if any headaches, dizziness, shortness of breath, chest pain, abdominal pain, bleeding, fevers, or worsening of medical condition. Patient was counseled about treatment plan, medications, possible side effects, patientverbalized understanding. All questions were answered to the best of my ability. This discharge took greater then 30 minutes in planning, reviewing documentation, counseling the patient, and discussing with other team members." ASSESSMENT ASSESSMENT Assessment Acute ischemic stroke Date of Service: May 08, 2025 Billing Provider: RAYMON GO MD Common Visit Codes: 76937-ISC/OBS DISCH DAY >30min ANDRADE ALLEN RESIDENT May 08, 2025 18:43 RAYMON GO MD May 12, 2025 20:08
[2025-05-08] MEDS ORDERED: DOCUSATE SOD 100 MG CAP PO SCH (22:00)
[2025-05-08] MEDS ORDERED: INSULIN LANTUS (GLARGINE) 1 /0.01ml (100units/ml) SC SCH (22:00)
[2025-05-09] MEDS ORDERED: PANTOPRAZOLE 40 MG TAB PO SCH (06:00)
== END 2025-05-08 14:35 | disposition home or self-care (01) | DRG 65 ==
LOC: ER 18:14 → OVERFLOW 23:09 → TELE-WESTW 23:55
PROVIDERS: ADMIT Internal Medicine Geriatric Medicine; ATTEND Internal Medicine Geriatric Medicine
DX: I63.9 Cerebral infarction, unspecified (principal); I69.354 Hemiplegia and hemiparesis following cerebral infarction affecting left non-dominant side; E11.65 Type 2 diabetes mellitus with hyperglycemia; E78.5 Hyperlipidemia, unspecified; I10 Essential (primary) hypertension; Z90.710 Acquired absence of both cervix and uterus; Z98.51 Tubal ligation status; Z79.4 Long term (current) use of insulin; Z79.899 Other long term (current) drug therapy
CPT/HCPCS: 36415; 70450; 70496; 70498; 70551; 80048; 80053; 80061; 82306; 82607; 82962; 83690; 83735; 84100; 84443; 84484; 85025; 85610; 85730; 86141; 87081; 92610; 93005; 96360; 97110; 97116; 97163; G0378; J1815; J2470

== ENCOUNTER 2025-05-12 23:01 | Emergency (ER) | payer MEDICARE, MEDICAID ==
[~2025-05-12] VITALS: Ht 160 cm; Wt 72.0 kg
[2025-05-12] MEDS: PHENYLEPHRINE HCL 1 % NASAL SPRAY 15ML ONE (23:45)
--- NOTE | 2025-05-12 23:47 | ED.PDOC ---
History of Present Illness HPI Comments This is a 70-year-old female with history of recent ischemic stroke and MCA occlusion, hypertension, hyperlipidemia, diabetes mellitus who was BIBA for the evaluation of left-sided nosebleed for the past 5 hours. Patient comes from [facility] she has been receiving physical therapy. She rep orts that she fell 3 days back when she was unattended. Denied losing consciousness or reporting dizziness prior to the fall. Denies any no stoma or picking of the nose, she has been taking aspirin and Plavix at [facility], he started experiencing nosebleeds from the left nostril and she has been spitting blood. Denies chest pain, shortness of breaths, motor or sensory deficits at this time. Patient seen and examined. Currently spitting up blood, bleeding seen in the left nostril Attestation note: Dr. Noe: I was the supervising attending for this ED encounter. Please see the resident's notes. I have personally seen and evaluated this patient. I was available for questions and consultations. Differential diagnosis: Coagulopathy, anterior versus posterior nasal bleed, dryness, trauma, hypertensive crisis, MDM: MDM: patient presented with the above HPI.----nosebleed--workup was initiated. patient was found with the above mentioned diagnosis. the following medications were ordered: please refer to order lists of meds and tests obtained by myself Dr. Noe. Patient ED course and VS have been stabilized. Patient has been reassessed in the ED and remained in a stable condition. Pertinent incidental findings were discussed with the patient and/or family. Patient/family voices understanding and is agreeable with plan. Patient has been observed in the ED adequate length of time to insure improvement/stability. Escalation of care considered: Consideration of escalation to observation or admission Patient was hypertensive but her blood pressure has improved. Patient was given TXA intranasally. We do not have phenylephrine spray available in the ED at this hour. The patient was reassessed and she has no active bleeding. Patient will be DISCHARGED back to her facility in a stable condition. Patient is still awaiting her ride. All the reports of any imaging studies that were ordered by myself were reviewed by myself. Chief Complaint: Nose Bleed Time Seen by MD: 23:22 Primary Care Provider: WHITTEN Reviewed Notes: Nurses Notes, Allergies Allergies: Coded Allergies: NO KNOWN ALLERGIES (Unverified , 2/26/25) Home Meds Active Scripts Clopidogrel Bisulfate (CLOPIDOGREL) 75 Mg Tab, 75 MG PO DAILY for 30 Days, #30 TAB 1 Refill Prov:DEVEN SOLORZANO RESIDENT 05/03/25 Atorvastatin Calcium (ATORVASTATIN CALCIUM) 20 Mg Tab, 80 MG PO HS for 30 Days, #120 TAB 1 Refill Prov:DEVEN SOLORZANO RESIDENT 05/03/25 Aspirin (Aspirin Low Dose) 81 Mg Tab, 81 MG PO DAILY for 30 Days, #30 TAB 1 Refill Prov:DEVEN SOLORZANO RESIDENT 05/03/25 Amlodipine Besylate (NORVASC TABLET) 5 Mg Tb, 5 MG PO DAILY for 30 Days, #30 TAB 1 Refill Prov:DEVEN SOLORZANO RESIDENT 05/03/25 Reported Medications Losartan Potassium (Losartan Potassium) 100 Mg Tab, 1 TAB PO DAILY, #30 TAB 5 Refills 05/02/25 Information Source: Patient Mode of Arrival: EMS Severity: Mild Timing: Hours Past Medical History PAST MEDICAL HISTORY: DM, HTN Past Medical History (Other): Ischemic stroke, hypertension, diabetes Surgical History: Hysterectomy, Tubal Ligation MERCHANDISING COORDINATOR History: Denies all MERCHANDISING COORDINATOR Hx Family History Family History: Reviewed,noncontributory to illness Social History Smoker: Non-Smoker Alcohol: Denies ETOH Use Drugs: Denies Drug Use Lives In: Home Constitutional: denies: chills, diaphoresis, fatigue, fever, malaise, sweats, weakness, others EENTM: reports: nose bleeding Respiratory: denies: cough, hemoptysis, orthopnea, SOB at rest, shortness of breath, SOB with excertion, stridor, wheezing, others Cardiovascular: denies: chest pain, dizzy spells, diaphoresis, Dyspnea on exertion, edema, irregular heart beat, left arm pain, lightheadedness, palpitations, PND, syncope, others Gastrointestinal: denies: abdomen distended, abdominal pain, blood streaked bowels, constipated, diarrhea, dysphagia, difficulty swallowing, hematemesis, melena, nausea, poor appetite, poor fluid intake, rectal bleeding, rectal pain, vomiting, others Genitourinary: denies: abnormal vagina bleeding, burning, dyspareunia, dysuria, flank pain, frequency, hematuria, incontinence, pain, , vagina discharge, urgency, others Neurological: denies: dizziness, fainting, headache, left sided numbness, left sided weakness, numbness, paresthesia, pre-existing deficit, right sided numbness, right sided weakness, seizure, speech problems, tingling, tremors, weakness, others Musculoskeletal: denies: back pain, gout, joint pain, joint swelling, muscle pain, muscle stiffness, neck pain, others Integumetry: denies: bruises, change in color, change in hair/nails, dryness, laceration, lesions, lumps, rash, wounds, others Allergic/Immunocompromised: denies: Difficulty Healing, Frequent Infections, Hives, Itching, others Hematologic/Lymphatic: denies: anemia, blood clots, easy bleeding, easy bruising, swollen glands, others Endocrine: denies: excessive hunger, excessive sweating, excessive thirst, excessive urination, flushing, intolerance to cold, intolerance to heat, unexplained weight gain, unexplained weight loss, others Psychiatric: denies: anxiety, bipolar disorder, depression, hopeless, panic disorder, schizophrenia, sleepless, suicidal, others Physical Exam General Appearance: Mild Distress HEENT: Cornea (L), Cornea (R), Pharynx Normal Neck: NOT DONE Respiratory: Chest Non-Tender, Decreased Breath Sounds, No Accessory Muscle Use, No Respiratory Distress Cardiovascular: No Edema, No JVD, Regular Rate/Rhythm Breast Exam: Deferred Gastrointestinal: No Organomegaly, Non Tender Genitalia: Deferred Pelvic: Deferred Rectal: Rectal Exam not done Extremities: Other (Left shoulder has a bruise but nontender) Neurologic: Other (Left upper and lower extremity residual weakness, patient has slurred speech but reports that this is improving.) Cerebellar Function: NOT DONE Reflexes: NOT DONE Skin: Bruises Lymphatic: NOT DONE Was a procedure done? Was a procedure done?: No Differential Dx Considerations may include: Epistaxis/trauma/coagulopathy/bleeding disorder/medication induced X-Ray, Labs, Meds, VS Vital Signs Date Time Temp Pulse Resp B/P (MAP) Pulse Ox O2 Delivery O2 Flow Rate FiO2 05/13/25 02:35 84 15 115/58 (77) 94 05/13/25 00:02 14 95 Room Air* 0 21 05/13/25 00:02 98.2 97 14 140/79 (99) 95 98.2 05/12/25 23:14 98.6 99 16 164/70 95 98.6 Lab Test 05/13/25 00:07 Range/Units Prothrombin Time 10.5 9.3-11.8 sec Prothrombin Time INR 0.99 0.9-1.15 Activated Partial Thromboplast Time 26.5 24.5-34.5 SEC Sodium Level 138 136-145 mmol/L Potassium Level 4.4 3.5-5.1 mmol/L Chloride Level 101 98-107 mmol/L Carbon Dioxide Level 27 20-31 mmol/L Anion Gap 10 5-15 Blood Urea Nitrogen 12 9-23 mg/dL Creatinine 0.68 0.550-1.02 mg/dL Glomerular Filtration Rate Calc 94 >90 mL/min BUN/Creatinine Ratio 17.6 10.0-20.0 Serum Glucose 222 H 74-106 mg/dL Calcium Level 9.2 8.7-10.4 mg/dL Total Bilirubin 0.8 0.2-1.0 mg/dL Aspartate Amino Transferase (AST) 38 13-40 U/L Alanine Aminotransferase (ALT) 36 7-40 U/L Alkaline Phosphatase 149 H 46-116 U/L Troponin I High Sensitivity < 3 L </=34 ng/L Total Protein 7.1 5.7-8.2 g/dL Albumin 4.1 3.2-4.8 g/dL [place] [address] Ph: [phone] DIAGNOSTIC IMAGING Diagnostic Imaging Report : [id number] Signed PATIENT: YUDELKA MOYER ACCT: [id number] UNIT: [id number] : 1955 LOC: ER ROOM / BED: / AGE / SEX: 70 / F ADM STATUS: REG ER SERVICE 0022 ORDERING PHYSICIAN: GARRETT NOE DO PROCEDURE(s): HWOCT - HEAD WITHOUT CONTRAST REASON: fall ORDER NUMBER(s): [id number], ACCESSION NUMBER(s): [id number] EXAM: CT HEAD WITHOUT CONTRAST INDICATION: fall TECHNIQUE: CT of the head without intravenous contrast. Radiation Dose : 1. Head: CT Dose: CTDI volume is 51.69 mGy. Dose-length product is 725.42 mGy*cm The dose indicators for CT are the volume Computed Tomography (CT) Dose Index (CTDIvol) and the Dose Length Product (DLP), and are measured in units of mGy and mGy-cm, respectively. These indicators are not patient dose, but values generated from the CT scanner acquisition factors. The report includes radiation exposure data for exposures received during this examination. COMPARISON: CT ANGIO HEAD/NECK on DOS: 05/06/25, MRI BRAIN HEAD WO CONTRAST on DOS: 05/06/25, CT HEAD WITHOUT CONTRAST on DOS: 05/05/25, MRI BRAIN HEAD WO CONTRAST on DOS: 05/02/25, CT ANGIO HEAD/NECK on DOS: 05/01/25 FINDINGS: Continued evolution of right middle cerebral artery territory infarcts without evidence of new infarct. No evidence of acute intracranial hemorrhage. There is no evidence of extra-axial collection, mass effect, midline shift, herniation or hydrocephalus. The ventricles, sulci and cisterns are age appropriate. The oviedo-white differentiation is intact. Patchy periventricular and subcortical white matter hypoattenuation is nonspecific but may be related to small vessel ischemic disease. The visualized paranasal sinuses and mastoid air cells are clear. The surrounding soft tissues and osseous structures are unremarkable. IMPRESSION: 1. No acute intracranial abnormality. 2. Continued evolution of right middle cerebral artery territory infarcts. Radiation optimization: All CT scans at this facility use at least one of these dose optimization techniques: automated exposure control mA and/or kV adjustment per patient size (includes targeted exams where dose is matched to clinical indication) or iterative reconstruction. ATED BY: GOPAL MARTINES MD DICTATED DATE/TIME: 05/13/2549 SIGNED BY: GOPAL MARTINES MD SIGNED DATE/TIME: 05/13/2549 CC: X-Ray, Labs, Meds, VS Comment ct head: 1. No acute intracranial abnormality. 2. Continued evolution of right middle cerebral artery territory infarcts. cmp wnl Images Reviewed?: Images reviewed and evaluated by me Time of 1ST Reevaluation: 01:00 Reevaluation 1ST: Unchanged Time of 2ND Reevaluation: 02:51 Reevaluation 2ND: Resolved Patient Education/Counseling: Diagnosis, Treatment Family Education/Counseling: Diagnosis, Treatment SEPSIS Sepsis Screen Date sepsis recognized/suspect: May 12, 2025 Time Sepsis recognized/suspect: 2323 Recent Procedure: No On Antibiotic Therapy: No Respiratory Rate >20: No Heart Rate >90: No Temp<36 C (96.8 F) or >38.3 C: No SBP <90 or MAP <65 mmHG: No New Acute Mental Status Change: No Is the patient on CPAP, BIPAP,: No Physician Orders Soldering Machine Operator Automatic (05/12/25 ) Head Without Contrast (05/13/25 00:22) Communication Order (05/13/25 00:46) Vital Signs Date Time Temp Pulse Resp B/P (MAP) Pulse Ox O2 Delivery O2 Flow Rate FiO2 05/13/25 02:35 84 15 115/58 (77) 94 05/13/25 00:02 14 95 Room Air* 0 21 05/13/25 00:02 98.2 97 14 140/79 (99) 95 98.2 05/12/25 23:14 98.6 99 16 164/70 95 98.6 Departure 1 Departure Time of Disposition: 01:13 Impression: Primary Impression: Epistaxis Additional Impression: Hypertension Disposition: HOME / SELF CARE / HOMELESS Condition: Stable Additional Instructions: Additional instructions: Please read all instructions provided in this packet carefully. You MUST follow-up with your primary care/family doctor in 1 to 2 days. If you are unable to see your primary care/family doctor, please return to our emergency room for re-assessment and re-evaluation in 1 to 2 days. Return to the emergency room here in our facility or to the nearest ER [facility] if your symptoms change or worsen. CONSULTATIONS: you MUST Follow-up for consultation as soon as possible with: -ENT doctor in 1-2 days. Please call for appointment. You MUST call the consultants office yourself to make an appointment. You may need to arrange that through your insurance and/or your primary/family doctor. If you are unable to see the databases computer consultant in 1 to 2 days, you must return to our emergency room (or any other ER of your choice) for re-assessment and re- evaluation. Adequate fluid hydration. Although you have been discharged from the Emergency Department, this does not mean that you have a "clean bill of health". No definitive diagnosis for your symptoms has been made today. It is possible that you are in the process of developing a serious illness. This is why you must return to the ED without fail if any new or worsening symptoms develop. Monitoring blood pressure at home at least 3 times a day. [facility] [id number] [place] [address] Ph: [phone] DIAGNOSTIC IMAGING Diagnostic Imaging Report : [id number] Signed PATIENT: YUDELKA MOYER ACCT: [id number] UNIT: [id number] : 1955 LOC: ER ROOM / BED: / AGE / SEX: 70 / F ADM STATUS: REG ER SERVICE 0022 ORDERING PHYSICIAN: GARRETT NOE DO PROCEDURE(s): HWOCT - HEAD WITHOUT CONTRAST REASON: fall ORDER NUMBER(s): [id number], ACCESSION NUMBER(s): [id number] EXAM: CT HEAD WITHOUT CONTRAST INDICATION: fall TECHNIQUE: CT of the head without intravenous contrast. Radiation Dose : 1. Head: CT Dose: CTDI volume is 51.69 mGy. Dose-length product is 725.42 mGy*cm The dose indicators for CT are the volume Computed Tomography (CT) Dose Index (CTDIvol) and the Dose Length Product (DLP), and are measured in units of mGy and mGy-cm, respectively. These indicators are not patient dose, but values generated from the CT scanner acquisition factors. The report includes radiation exposure data for exposures received during this examination. COMPARISON: CT ANGIO HEAD/NECK on DOS: 05/06/25, MRI BRAIN HEAD WO CONTRAST on DOS: 05/06/25, CT HEAD WITHOUT CONTRAST on DOS: 05/05/25, MRI BRAIN HEAD WO CONTRAST on DOS: 05/02/25, CT ANGIO HEAD/NECK on DOS: 05/01/25 FINDINGS: Continued evolution of right middle cerebral artery territory infarcts without evidence of new infarct. No evidence of acute intracranial hemorrhage. There is no evidence of extra-axial collection, mass effect, midline shift, herniation or hydrocephalus. The ventricles, sulci and cisterns are age appropriate. The oviedo-white differentiation is intact. Patchy periventricular and subcortical white matter hypoattenuation is nonspecific but may be related to small vessel ischemic disease. The visualized paranasal sinuses and mastoid air cells are clear. The surrounding soft tissues and osseous structures are unremarkable. IMPRESSION: 1. No acute intracranial abnormality. 2. Continued evolution of right middle cerebral artery territory infarcts. Radiation optimization: All CT scans at this facility use at least one of these dose optimization techniques: automated exposure control mA and/or kV adjustment per patient size (includes targeted exams where dose is matched to clinical indication) or iterative reconstruction. ATED BY: GOPAL MARTINES MD DICTATED DATE/TIME: 05/13/2549 SIGNED BY: GOPAL MARTINES MD SIGNED DATE/TIME: 05/13/2549 CC: Discharged With: Self Critical Care Note Critical Care Time?: No Stability Stability form required: No Heart Score Heart Score: Heart Score Response (Comments) Value History N/A 0 EKG N/A 0 Age N/A 0 Risk Factors N/A 0 Troponin N/A 0 Total 0 I personally scribed for GARRETT NOE DO ([email or web address]) on 05/13/25 at 02:20. El ectronically submitted by Pelon Hugo ([email or web address]). MALICK JENSEN RESIDENT May 12, 2025 23:47 GARRETT NOE DO May 13, 2025 01:50
[2025-05-13 00:02] VITALS: RESP 14; O2SAT 95
[2025-05-13] MEDS: PHENYLEPHRINE HCL 0.5 % NASAL SPRAY 15ML ONE (00:24)
[2025-05-13] MEDS: LABETALOL HCL 20 MG/4 ML VL IV ONE (00:25)
[2025-05-13 00:49] LABS: Alanine Aminotransferase 36 U/L (7-40); Albumin 4.1 g/dL (3.2-4.8); Anion Gap 10 (5-15); BUN/Creatinine Ratio 17.6 (10.0-20.0); Bilirubin, Total 0.8 mg/dL (0.2-1.0); Blood Urea Nitrogen 12 mg/dL (9-23); Calcium 9.2 mg/dL (8.7-10.4); Carbon Dioxide 27 mmol/L (20-31); Chloride 101 mmol/L (98-107); Potassium 4.4 mmol/L (3.5-5.1); Sodium 138 mmol/L (136-145); Total Protein 7.1 g/dL (5.7-8.2)
[2025-05-13] MEDS: TRANEXAMIC ACID 10 ML ONE (00:50)
[2025-05-13 00:51] LABS: INR 0.99 (0.9-1.15); Partial Thromboplastin Time 26.5 SEC (24.5-34.5); Prothrombin Time 10.5 sec (9.3-11.8)
[2025-05-13 00:52] LABS: Alkaline Phosphatase 149 U/L (46-116); Glucose 222 mg/dL (74-106)
--- NOTE | 2025-05-13 00:52 | DVH ---
EXAM: CT HEAD WITHOUT CONTRAST INDICATION: fall TECHNIQUE: CT of the head without intravenous contrast. Radiation Dose : 1. Head: CT Dose: CTDI volume is 51.69 mGy. Dose-length product is 725.42 mGy*cm The dose indicators for CT are the volume Computed Tomography (CT) Dose Index (CTDIvol) and the Dose Length Product (DLP), and are measured in units of mGy and mGy-cm, respectively. These indicators are not patient dose, but values generated from the CT scanner acquisition factors. The report includes radiation exposure data for exposures received during this examination. COMPARISON: CT ANGIO HEAD/NECK on DOS: 05/06/25, MRI BRAIN HEAD WO CONTRAST on DOS: 05/06/25, CT HEAD W ITHOUT CONTRAST on DOS: 05/05/25, MRI BRAIN HEAD WO CONTRAST on DOS: 05/02/25, CT ANGIO HEAD/NECK on DO S: 05/01/25 FINDINGS: Continued evolution of right middle cerebral artery territory infarcts without evidence of new infarc t. No evidence of acute intracranial hemorrhage. There is no evidence of extra-axial collection, mass effect, midline shift, herniation or hydrocepha ashleigh. The ventricles, sulci and cisterns are age appropriate. The oviedo-white differentiation is intact. Patchy periventricular and subcortical white matter hypoattenuation is nonspecific but may be related to small vessel ischemic disease. The visualized paranasal sinuses and mastoid air cells are clear. The surrounding soft tissues and osseous structures are unremarkable. IMPRESSION: 1. No acute intracranial abnormality. 2. Continued evolution of right middle cerebral artery territory infarcts. Radiation optimization: All CT scans at this facility use at least one of these dose optimization damian hniques: automated exposure control mA and/or kV adjustment per patient size (includes targeted exam s where dose is matched to clinical indication) or iterative reconstruction.
[2025-05-13 05:45] LABS: Hematocrit 38.8 % (36.0-46.0); Hemoglobin 13.5 g/dL (12.2-16.2); Mean Corpuscular Hemoglobin 29.7 pg (28.0-32.0); Mean Corpuscular Volume 85.5 fL (80.0-100.0); Nucleated Red Blood Cells % 0.0 %
[2025-05-13 10:00] VITALS: BP 112/82; PULSE 78; RESP 15; TEMP 98.4; O2SAT 95
== END 2025-05-13 11:47 | disposition home or self-care (01) ==
LOC: EDBD 23:01 → ER 23:01
DX: R04.0 Epistaxis (principal); I10 Essential (primary) hypertension; E11.9 Type 2 diabetes mellitus without complications; E78.5 Hyperlipidemia, unspecified; R42 Dizziness and giddiness; Z79.899 Other long term (current) drug therapy; Z86.73 Personal history of transient ischemic attack (TIA), and cerebral infarction without residual deficits; Z90.710 Acquired absence of both cervix and uterus
CPT/HCPCS: 36415; 70450; 80053; 84484; 85025; 85610; 85730

== ENCOUNTER 2025-05-17 09:53 | Emergency (ER) | payer MEDICARE, MEDICAID ==
[~2025-05-17] VITALS: Ht 157.5 cm; Wt 70.0 kg
--- NOTE | 2025-05-17 10:13 | ED.PDOC ---
HPI Comments 70-year-old female presents here for [facility] post acute for increased blood pressure. Blood pressure was found to be 178/78. Family was at bedside at the time and was concerned and asked for patient to be taken to the emergency room. She was given clonidine at 8:15 a.m.. Paramedics were called and they state about 10 minutes after the arrival blood pressure had improved to 125/60. Patient currently has no complaints she did have a headache this morning. The currently states she has mild pressure bilateral head but no significant headache. Denies any chest pain or shortness of breath. She also states she had an episode of epistaxis this morning from her nose. But has since resolved. I spoke to chief steward/stewardess staff regarding the patient and give was given report by the Chief Complaint: High Blood Pressure Time Seen by MD: 09:58 Primary Care Provider: FISH Allergies: Coded Allergies: NO KNOWN ALLERGIES (Unverified , 10/02/24) Home Meds Active Scripts Clopidogrel Bisulfate (CLOPIDOGREL) 75 Mg Tab, 75 MG PO DAILY for 30 Days, #30 TAB 1 Refill Prov:DEVEN SOLORZANO RESIDENT 05/03/25 Atorvastatin Calcium (ATORVASTATIN CALCIUM) 20 Mg Tab, 80 MG PO HS for 30 Days, #120 TAB 1 Refill Prov:DEVEN SOLORZANO RESIDENT 05/03/25 Aspirin (Aspirin Low Dose) 81 Mg Tab, 81 MG PO DAILY for 30 Days, #30 TAB 1 Refill Prov:DEVEN SOLORZANO RESIDENT 05/03/25 Amlodipine Besylate (NORVASC TABLET) 5 Mg Tb, 5 MG PO DAILY for 30 Days, #30 TAB 1 Refill Prov:DEVEN SOLORZANO RESIDENT 05/03/25 Reported Medications Losartan Potassium (Losartan Potassium) 100 Mg Tab, 1 TAB PO DAILY, #30 TAB 5 Refills 05/02/25 Mode of Arrival: EMS Past Medical History PAST MEDICAL HISTORY: DM, HTN Past Medical History (Other): Previous left-sided stroke with left-sided deficits Surgical History: Hysterectomy, Tubal Ligation CHEESE SPRAYER History: Denies all CHEESE SPRAYER Hx Family History Family History: Reviewed,noncontributory to illness Social History Smoker: Non-Smoker Alcohol: Denies ETOH Use Drugs: Denies Drug Use Lives In: Home All Other Systems: Reviewed and Negative Physical Exam Exam Comments On EMS stretcher General Appearance: No Apparent Distress, Normal HEENT: Normal ENT Inspection, Pharynx Normal, TMs Normal Neck: Full Range of Motion, Non-Tender, Normal, Normal Inspection Respiratory: Chest Non-Tender, Lungs Clear, No Accessory Muscle Use, No Respiratory Distress, Normal Breath Sounds Cardiovascular: No Edema, No JVD, No Murmur, No Gallop, Normal Peripheral Pulses, Regular Rate/Rhythm Breast Exam: Deferred Gastrointestinal: No Organomegaly, Non Tender, No Pulsatile Mass, Normal Bowel Sounds, Soft Genitalia: Deferred Pelvic: Deferred Rectal: Deferred Extremities: No calf tenderness, Normal capillary refill, Normal inspection, Normal range of motion, Non-tender, No pedal edema Musculoskeletal : Apperance: Normal Neurologic: Facial Droop, Motor Weakness, Other (Slurred speech left facial droop, significant left upper extremity and left lower extremity weakness all of which is chronic from recent stroke. Patient otherwise mentating well A&O x4 and able to answer questions) Cerebellar Function: Normal Reflexes: Normal Skin: Dry, Normal Color, Warm Lymphatic: No Adenopathy EKG EKG : Comments Rate of 82 sinus rhythm no significant ST changes Was a procedure done? Was a procedure done?: No CP Differential Dx Differential Diagnosis: Other Differential Diagnosis: Other Differential Diagnosis: Other Comment Hypertensive urgency, intracranial hemorrhage, hypertensive emergency X-Ray, Labs, Meds, VS 70-year-old female presents here with high blood pressure. Patient's blood pressure was found 178/78 at post acute Care. At that time she was given clonidine. Per medic a proximally 10 minutes after they took her in her blood pressure was now 125/60. Her blood pressure at this time is 140/78. She has no complaints. She reports may normal headache for which I have given her Tylenol only. She states she had a epistaxis earlier today which has since resolved. At this time she does have left-sided deficits which are old. At this time given the patient is well-appearing has no complaints I will be discharging the patient back to [facility]. Time of 1ST Reevaluation: 10:12 Reevaluation 1ST: Unchanged Patient Education/Counseling: Diagnosis, Treatment Family Education/Counseling: No Family Present SEPSIS Sepsis Screen Date sepsis recognized/suspect: May 17, 2025 Time Sepsis recognized/suspect: 0955 Recent Procedure: No On Antibiotic Therapy: No Respiratory Rate >20: No Heart Rate >90: No Temp<36 C (96.8 F) or >38.3 C: No SBP <90 or MAP <65 mmHG: No New Acute Mental Status Change: No Is the patient on CPAP, BIPAP,: No Departure 1 Departure Time of Disposition: 10:12 Impression: Primary Impression: Hypertensive urgency Disposition: 01 HOME / SELF CARE / HOMELESS Condition: Fair Additional Instructions: Follow up with the primary care physician in 2-3 days. Return to the ER if symptoms worsen or persist. Discharged With: Self Critical Care Note Critical Care Time?: No Stability Stability form required: No Heart Score Heart Score: Heart Score Response (Comments) Value History N/A 0 EKG Normal 0 Age >65 2 Risk Factors 1 or 2 risk factors 1 Troponin N/A 0 Total 3 KIMANI MONTOYA MD May 17, 2025 10:13
[2025-05-17 10:45] VITALS: PULSE 79; RESP 16; O2SAT 97
[2025-05-17] MEDS: ACETAMINOPHEN 325 MG TAB PO ONE (11:03)
--- NOTE | 2025-05-17 11:32 | ECG ---
[facility] Test Date: 2025-05-17 Test Time: 10:02:22 Pat Name: YUDELKA MOYER Department: [facility] ED Patient ID: [id number] Room: Gender: F [employer] Associate: TYE : 1955 Requested By: KIMANI MONTOYA Order Number: [id number] Reading MD: Gus Sullivan Measurements Intervals [place] Rate: 82 P: 76 FL: 160 QRS: 7 QRSD: 100 T: 129 QT: 380 QTc: 444 Interpretive Statements Sinus rhythm Borderline repolarization abnormality Electronically Signed On 05-17-2025 20:42:25 PDT by Gus Sullivan Please click the below link to view image of tracing.
[2025-05-17 13:55] VITALS: BP 139/72; PULSE 71; RESP 18; TEMP 97.9; O2SAT 96
== END 2025-05-17 13:55 | disposition home or self-care (01) ==
LOC: ER 09:53 → EDUNIT# 09:53 → EDBD 09:53 → ER 13:55
DX: I16.0 Hypertensive urgency (principal); E11.9 Type 2 diabetes mellitus without complications; I10 Essential (primary) hypertension; Z90.710 Acquired absence of both cervix and uterus; Z86.73 Personal history of transient ischemic attack (TIA), and cerebral infarction without residual deficits; Z79.899 Other long term (current) drug therapy
CPT/HCPCS: 93005